=== PATIENT | male | born 1935 | race American Indian/Alaskan Native ===

== ENCOUNTER 2018-01-02 22:48 | Inpatient (IN) | payer MEDICARE ==
[2018-01-02 23:33] LABS: Hematocrit 43.1 % (35.5-45.6); Hemoglobin 14.2 gm/dl (11.8-15.2); Mean Corpuscular HGB Conc 33 % (32-34); Mean Corpuscular Hemoglobin 26 pg (28-32); Mean Corpuscular Volume 79 fl (84-94); Platelet Count 234 K/mm3 (140-440); Red Blood Count 5.45 M/mm3 (3.65-5.03); Red Cell Distribution Width 14.3 % (13.2-15.2)
--- NOTE | 2018-01-02 23:38 | Emergency Department Report ---
HPI - General Chief Complaint: Weakness Time Seen by Provider: 01/02/18 23:08 - HPI HPI: 82-year-old Sudanese male presents to the emergency department via EMS from home after he was found in bed by his family when they were unable to get in touch with him all day. The patient is AAO 3 but does appear to have some level of confusion as to why he did not get out of bed all day. He has not eaten anything today, he did not get up to use the restroom and possibly soiled himself. He lives by himself. He is unsure of any past medical history but there is some questionable remote coronary artery disease and/or WI. When he was found by his family earlier tonight he began complaining of significant left hip pain. He denies any fall or trauma "as far as I can remember." He gets his medical care through the [facility] and through [facility]. ED Past Medical Hx - Past Medical History Previous Medical History?: No - Surgical History Past Surgical History?: No - Social History Smoking Status: Never Smoker Substance Use Type: None - Medications Home Medications: Home Medications Medication Instructions Recorded Confirmed Last Taken Type Dorzolamide HCl/Timolol Maleat 22.3 mg OD BID 01/03/18 01/03/18 01/01/18 08:00 History Sulfamethoxazole-Tmp Ss Tablet 800 mg PO BID 01/03/18 01/03/18 01/01/18 08:00 History ED Review of Systems ROS: Stated complaint: HIP PAIN Other details as noted in HPI Comment: All other systems reviewed and negative Constitutional: chills, weakness Eyes: eye discharge. denies: eye pain ENT: denies: ear pain, throat pain Respiratory: denies: cough, shortness of breath, wheezing Cardiovascular: denies: chest pain, palpitations Gastrointestinal: denies: abdominal pain, nausea, diarrhea Genitourinary: denies: urgency, dysuria Musculoskeletal: arthralgia. denies: back pain Skin: denies: rash, lesions Neurological: weakness, confusion. denies: headache Physical Exam - Physical Exam Vital Signs: Vital Signs 01/02/18 23:01 Temperature 99.8 F H Pulse Rate 98 H Respiratory 16 Rate Blood Pressure 144/91 O2 Sat by Pulse 98 Oximetry Physical Exam: GENERAL: The patient is well-developed well-nourished. HENT: Normocephalic. Atraumatic. Patient has moist mucous membranes. EYES: Extraocular motions are intact. Pupils equal reactive to light bilaterally. No nystagmus. NECK: Supple. Trachea is midline. CHEST/LUNGS: Clear to auscultation. There is no respiratory distress noted. HEART/CARDIOVASCULAR: Regular. There is no tachycardia. There is no murmur. ABDOMEN: Abdomen is soft, nontender. Patient has normal bowel sounds. There is no abdominal distention. SKIN: Skin is warm and dry. NEURO: The patient is awake, alert. The patient is unable to recall the events of today or explain why he never left bed. The patient is cooperative. The patient has no motor or sensory deficits. The patient has normal speech. Patient is tremulous. MUSCULOSKELETAL: Tenderness to palpation to the left hip. There is decreased range of motion of the left lower extremity secondary to left hip pain. ED Course Vital Signs 01/02/18 23:01 Temperature 99.8 F H Pulse Rate 98 H Respiratory 16 Rate Blood Pressure 144/91 O2 Sat by Pulse 98 Oximetry - Consultations Consultation #1: As the patient has [facility] insurance, we contacted the [facility] transfer line and I spoke with Dr. Diallo who is given permission to keep the patient at [facility] for further evaluation and treatment. 01/03/18 01:55 ED Medical Decision Making - Lab Data Result diagrams: 01/02/18 23:18 01/02/18 23:18 - EKG Data -: EKG Interpreted by Me EKG shows normal: sinus rhythm, axis (left axis deviation), intervals, QRS complexes (incomplete right bundle branch block, left anterior fascicular block) , ST-T waves (T-wave inversions to the lateral leads) Rate: normal - EKG Data When compared to previous EKG there are: previous EKG unavailable Interpretation: other (sinus rhythm, left axis deviation, incomplete right bundle branch block, left anterior fascicular block, T-wave inversions to the inferior leads) - Radiology Data Radiology results: report reviewed, image reviewed interpreted by me: Chest x-ray does not show any acute process. There are no pleural effusions, obvious pneumonia and there is no pneumothorax. X-ray of the pelvis and bilateral hips does not show any fracture, dislocation or any acute process. EXAM: CT HEAD/BRAIN WO CON HISTORY: Altered Mental Status COMPARISON: CT of the head from May 2012. TECHNIQUE: Axial images obtained skull base through vertex. FINDINGS: No acute intracranial hemorrhage, midline shift or pathologic extra axial fluid collection. Age related volume loss with compensatory dilatation of the ventricular system and chronic small vessel ischemic disease. Otherwise, vu-white differentiation preserved. Calvarium grossly intact. Prior cataract surgery on the left. Benign senescent scleral calcification of the left ocular globe. Moderate calcified plaque along the carotid siphons. Small retention cyst or polyp left maxillary sinus. Mild to moderate mucosal thickening the paranasal sinuses. Mastoid air cells are clear. IMPRESSION: No grossly acute intracranial abnormality. Mild age related volume loss and chronic small vessel ischemic disease. Transcribed By: LMAngela Dictated By: LIZZIE KAUR MD Electronically Authenticated By: LIZZIE KAUR MD Signed Date/Time: 01/03/18 0012 - Medical Decision Making This patient presents from home via EMS after he was nonresponsive to families phone calls and the patient was found laying in bed where he appears to have been since last night, 24 hours ago. He does not recall eating, getting up to use the restroom. He presents with a low-grade fever. Rest of vitals are stable. His labs show a mild elevation in the lactic acid level, elevation of CK level at about 1000. He was given some IV fluid resuscitation but has yet to give a urine sample. Patient had a complaint of severe left hip pain. There is no known trauma but he is tender to this area without any obvious deformity. X-ray of the hips and pelvis was done that did not show any fracture , dislocation or any acute process. Due to his generalized weakness, a CT scan of the head without contrast was also done but this also did not show any bleed , shift, mass or any other acute process. The patient lives alone and family is at bedside and says that he does not appear to be at his normal baseline mental status and he appears weak and tremulous. For all these reasons, the patient will be admitted to the hospital for further evaluation and treatment and was accepted for admission by the hospitalist, Dr. Hawk. - Differential Diagnosis CVA, TIA, dehydration, hypoglycemia, dysrhythmia Critical Care Time: No Critical care attestation.: If time is entered above; I have spent that time in minutes in the direct care of this critically ill patient, excluding procedure time. ED Disposition Clinical Impression: Generalized weakness, Elevated CK, Left hip pain Altered mental status Qualifiers: Altered mental status type: transient alteration of awareness Qualified Code(s) : R40.4 - Transient alteration of awareness Disposition: DC-09 OP ADMIT IP TO THIS HOSP Is pt being admited?: Yes Condition: Fair Time of Disposition: 01:55
--- NOTE | 2018-01-02 23:42 | XRay Report ---
FINAL REPORT PROCEDURE: XR CHEST 1V AP TECHNIQUE: Chest radiograph anteroposterior view. CPT 11887 HISTORY: Altered Mental Status COMPARISON: No prior studies are available for comparison. FINDINGS: Heart: Normal. Mediastinum/Vessels: Normal. Lungs/Pleural space: Lungs are hyperinflated. There are no confluent infiltrates or mass lesions. Pleural spaces are clear.. Bony thorax: No acute osseous abnormality. Life support devices: None. IMPRESSION: COPD No acute pulmonary process..
--- NOTE | 2018-01-02 23:45 | XRay Report ---
FINAL REPORT PROCEDURE: XR HIPS BILAT 2V W/PELVIS TECHNIQUE: Pelvis radiographs, 2 views. HISTORY: pelvic and left hip pain COMPARISON: No prior studies are available for comparison. FINDINGS: Fracture (s) and/or Dislocation(s): None . Joint space(s): Normal. Soft tissues: Normal. Bone mineralization: Normal. Foreign bodies: None. Transitional vertebra is noted at lumbosacral junction. Spinal stabilization hardware is identified from L3-L5. IMPRESSION: No acute abnormality.
[2018-01-02] MEDS ORDERED: NACL 0.9% 1000 ML 1,000 ML IV ONE (23:59)
[2018-01-03 00:04] LABS: Alanine Aminotransferase 12 units/L (7-56); Albumin 3.8 g/dL (3.9-5); BUN/Creatinine Ratio 12; Blood Urea Nitrogen 15 mg/dL (9-20); Calcium 9.2 mg/dL (8.4-10.2); Hemolysis Index 3
[2018-01-03] MEDS ORDERED: NACL 0.9% 500 ML 500 ML IV ONE (00:09)
--- NOTE | 2018-01-03 00:16 | Cat Scan Report ---
FINAL REPORT EXAM: CT HEAD/BRAIN WO CON HISTORY: Altered Mental Status COMPARISON: CT of the head from May 2012. TECHNIQUE: Axial images obtained skull base through vertex. FINDINGS: No acute intracranial hemorrhage, midline shift or pathologic extra axial fluid collection. Age related volume loss with compensatory dilatation of the ventricular system and chronic small vessel ischemic disease. Otherwise, vu-white differentiation preserved. Calvarium grossly intact. Prior cataract surgery on the left. Benign senescent scleral calcification of the left ocular globe. Moderate calcified plaque along the carotid siphons. Small retention cyst or polyp left maxillary sinus. Mild to moderate mucosal thickening the paranasal sinuses. Mastoid air cells are clear. IMPRESSION: No grossly acute intracranial abnormality. Mild age related volume loss and chronic small vessel ischemic disease.
[2018-01-03] MEDS ORDERED: TYLENOL PO ONE (00:49)
[2018-01-03 02:36] LABS: Band Neutrophils # (Manual) 0.1 K/mm3; Basophils % (Manual) 0 % (0.0-1.8); Platelet Estimate Consistent w Auto; Total Cells Counted 100
[2018-01-03] MEDS ORDERED: TYLENOL PO PRN (02:55)
[2018-01-03] MEDS ORDERED: ZOFRAN IV PRN (02:55)
[2018-01-03] MEDS ORDERED: DULCOLAX PR PRN (02:55)
[2018-01-03] MEDS ORDERED: SODIUM CHLORIDE FLUSH SYRINGE 10 ML IV PRN (02:55)
[2018-01-03 04:03] LABS: Bilirubin,Urine NEG (Negative); Blood,Urine MOD (Negative); Color,Urine Yellow (Yellow); Mucus,Urine FEW /HPF; Urobilinogen,Urine < 2.0 mg/dL (<2.0)
[2018-01-03 04:17] LABS: Amphetamine Screen,Urine PRESUMPTIVE NEGATIVE; Benzodiazepines Screen,Urine PRESUMPTIVE NEGATIVE; Cannabinoid Screen,Urine PRESUMPTIVE NEGATIVE; Cocaine Screen,Urine PRESUMPTIVE NEGATIVE; Methadone Screen,Urine PRESUMPTIVE NEGATIVE; Opiate Screen,Urine PRESUMPTIVE NEGATIVE
--- NOTE | 2018-01-03 04:34 | Cat Scan Report ---
FINAL REPORT EXAM: CT LOWER EXTREMITY LT WO CON HISTORY: left hip pain TECHNIQUE: CT images are acquired through the left hip without contrast. Transaxial , coronal and sagittal reformations are provided. PRIORS: The hip/pelvis radiographs of the same date FINDINGS: Diffuse demineralization. Mild diffuse pelvic enthesopathy. Os acetabuli are noted. Mild left hip osteoarthrosis. No displaced fractures identified. A Rivera catheter is noted. Pelvic phleboliths. Iliofemoral atherosclerotic calcifications are noted. Superficial soft tissues otherwise demonstrate an unremarkable noncontrast appearance. IMPRESSION: No displaced left hip periarticular fracture. Sensitivity of fracture detection is decreased by demineralization and degenerative findings. If patient has persistent hip pain, consider MRI.
--- NOTE | 2018-01-03 04:38 | Cat Scan Report ---
FINAL REPORT EXAM: CT LUMBAR SPINE WO CON HISTORY: lower extremity weakness TECHNIQUE: CT images are acquired through the lumbar spine without contrast. Transaxial , coronal and sagittal reformations are provided. PRIORS: None. FINDINGS: Laminectomy and posterior fusion has been performed at L3-L4 and L4-L5. There is mild anterolisthesis at L4-L5. Lumbar lordosis is otherwise preserved. No acute fracture identified. Vertebral body heights are preserved. Mild intervertebral disc space narrowing with associated endplate spondylosis is present at the non operative levels. Left iliac sequela of prior bone graft harvest is noted. Paraspinal soft tissues and imaged portions of the abdomen and pelvis are remarkable for sequela of prior lumbar fusion as well as aortoiliac atherosclerosis. IMPRESSION: No lumbar spine fracture or acute malalignment identified. Correlation with prior postoperative imaging is requested. Mild anterolisthesis at L4-L5 is likely chronic. Fusion hardware at L3-L4 and L4-L5 appears intact.
--- NOTE | 2018-01-03 04:48 | History and Physical Report ---
History of Present Illness Date of examination: 01/03/18 Date of admission: 01/03/18 02:55 History of present illness: 82-year-old man with a history of BPH comes emergency room with complaints of altered mental status per family. They have been calling the patient without a response, after several attempts, the daughter went to check on him. She found him in bed with decrease responsiveness, the house was very hot. Mental status back at baseline. He was started on antibiotic yesterday for UTI, they are unclear which antibiotic he was taking. complain of left hip pain Constitutional: no weight loss, chills Ears, eyes, nose, mouth and throat: no nasal congestion, no nasal discharge, no sinus pressure, no vision change, no red eye. Neck: No neck pain or rigidity. Cardiovascular: no chest pain palpitations Respiratory: noshortness of breath cough Gastrointestinal: no abdominal pain, hematochezia Genitourinary : no frequency , no hematuria Musculoskeletal: no joint swelling or muscle ache Integumentary: no rash, no pruritis Neurological: no parathesias, no numbness, no focal weakness Endocrine: no cold or heat intolerance, no polyuria or polydipsia Hematologic/Lymphatic: no easy bruising, no easy bleeding, no gland swelling Allergic/Immunologic: no urticaria, no angioedema. PAST MEDICAL HISTORY: BPH PAST SURGICAL HISTORY: Back, knee SOCIAL HISTORY: Denies tobacco, drugs, social alcohol FAMILY HISTORY: Hypertension Medications and Allergies Allergies Allergy/AdvReac Type Severity Reaction Status Date / Time Penicillins Allergy Hives Verified 01/02/18 23:00 Active Meds: Active Medications Acetaminophen (Tylenol) 650 mg PO Q4H PRN PRN Reason: Pain, Mild (1-3) Aspirin (Aspirin) 325 mg PO QDAY MICHELLE Bisacodyl (Dulcolax) 10 mg RI QDAY PRN PRN Reason: Constipation Enoxaparin Sodium (Lovenox) 40 mg SUB-Q QDAY MICHELLE Sodium Chloride (Nacl 0.9% 1000 Ml) 1,000 mls @ 125 mls/hr IV ONCE ONE Stop: 01/03/18 07:58 Last Admin: 01/03/18 01:46 Dose: 125 mls/hr Levofloxacin/Dextrose (Levaquin 750mg/150ml) 750 mg in 150 mls @ 100 mls/hr IV Q24HR MICHELLE; Protocol Sodium Chloride (Nacl 0.9% 1000 Ml) 1,000 mls @ 125 mls/hr IV DIRECT MICHELLE Ondansetron HCl (Zofran) 4 mg IV Q4H PRN PRN Reason: N/V unrelieved by Regrosalba Pravastatin Sodium (Pravachol) 20 mg PO QHS MICHELLE Sodium Chloride (Sodium Chloride Flush Syringe 10 Ml) 10 ml IV PRN PRN PRN Reason: LINE FLUSH Exam - Physical Exam Narrative exam: Gen. appearance: Patient lying in bed, no apparent distress HEENT: Normocephalic, atraumatic, pupils equally round and reactive to light, extraocular movement intact, and no sclericterus,. No JVD or thyromegaly or nodule,neck supple, no carotid bruit ,mucous membranes dry, no exudate or erythema Heart: S1, S2, regular rate and rhythm Lungs: Clear bilaterally, breathing comfortable Abdomen: Positive bowel sounds, nontender, nondistended, no organomegaly Extremity:, no edema cyanosis, clubbing sKIN:red blotches over torso, abdomen, Llegs, face, Neuro: Oriented 3, cranial nerves II-12 intact, speech is fluent, lLLE 1/5, RLE 2/5 - Constitutional Vitals: Temp Pulse Resp BP Pulse Ox 99.2 F 81 13 134/84 94 01/02/18 23:09 01/03/18 03:31 01/03/18 03:31 01/03/18 03:31 01/03/18 03:15 Results - Labs CBC & Chem 7: 01/02/18 23:18 01/02/18 23:18 Labs: Abnormal lab results 01/02/18 01/02/18 01/02/18 Range/Units 23:18 23:18 23:18 WBC 11.2 H (4.5-11.0) K/mm3 RBC 5.45 H (3.65-5.03) M/mm3 MCV 79 L (84-94) fl MCH 26 L (28-32) pg Seg Neuts % (Manual) 90.0 H (40.0-70.0) % Lymphocytes % (Manual) 4.0 L (13.4-35.0) % Seg Neutrophils # Man 10.1 H (1.8-7.7) K/mm3 Lymphocytes # (Manual) 0.4 L (1.2-5.4) K/mm3 Glucose 133 H (75-100) mg/dL Lactic Acid 2.10 H* (0.7-2.0) mmol/L Total Creatine Kinase 951 H (55-170) units/L Albumin 3.8 L (3.9-5) g/dL - Imaging and Cardiology EKG: image reviewed Chest x-ray: image reviewed CT Scan - head: report reviewed Assessment and Plan xray of hip reviewed Assessmrnt Lower Extremity weakness Allergic reaction most likely secondary to antibiotic Left hip pain UTI Rhabdomyolysis BPH Plan admit to medicine Obatin CT of back, hip Do neuro check start workup for stroke, MR head, carotid doppler and echo Start asa,iv fluid, hold statinn given rhabdo consult neuro. PT/OT hold antibiotic for now,l family to provide name of antibiotic dvt prophalaxis
[2018-01-03] MEDS: LEVAQUIN 750MG/150ML 750 MG/150 ML BAG IV SCH (10:24)
[2018-01-03] MEDS: ASPIRIN PO SCH (10:49)
[2018-01-03] MEDS: LOVENOX SUB-Q SCH (10:50)
[2018-01-03 11:26] LABS: Creatine Kinase MB 9.5 ng/mL (0.0-4.0)
--- NOTE | 2018-01-03 11:39 | Magnetic Resonance Report ---
FINAL REPORT EXAM: MR BRAIN WO CON HISTORY: stroke TECHNIQUE: MRI of the brain was performed. Images include: Sagittal T1, axial diffusion, axial gradient, axial T2, axial FLAIR, axial T1, coronal FLAIR and axial ADC map PRIORS: None. FINDINGS: There is a single tiny cortical focus of diffusion restriction in the right occipital lobe. Significance is unclear. This is very tiny and superficial. It could be a tiny cortical acute infarct. It measures only about 3 mm. No other area of diffusion restriction seen. There is nonspecific hyperintensity in periventricular white matter which is nonspecific but likely represents chronic microvascular ischemic disease. There is no edema, mass effect or midline shift. There is no abnormal extra-axial fluid collection. The ventricular size is appropriate for brain volume. There is no evidence of acute intracranial hemorrhage. IMPRESSION: There is a single 3 mm focus of diffusion restriction involving right occipital cortex which is of unclear significance. This is very minimal but could be very tiny acute cortical infarct. Moderate small vessel disease in the white matter.
--- NOTE | 2018-01-03 11:51 | Consultation ---
History of Present Illness Consult date: 01/03/18 Requesting physician: ROBERT BHATT Reason for Consult: AMS. Chief complaint: Confuse. History of present illness: 82-year-old right handed man with a history of BPH and arthritis presented to the emergency room with complaints of altered mental status per family. They have been calling the patient without a response, after several attempts, the daughter went to check on him. She found him in bed with decrease responsiveness, the house was very hot. When he was in the ER, mental status back at baseline. He was started on antibiotic yesterday for UTI, they are unclear which antibiotic he was taking. He also complain of left hip pain. His baseline is that cognitive functions are fine and ambulated with a walker for 2 years due to arthritis. There was no [id number] seizure like noted. Past History Past Medical History: other (BPH, arthritis.) Past Surgical History: Other (right knee replacement.) Social history: no significant social history Family history: hypertension Medications and Allergies Allergies Allergy/AdvReac Type Severity Reaction Status Date / Time Penicillins Allergy Hives Verified 01/02/18 23:00 Home Medications Medication Instructions Recorded Confirmed Last Taken Type Dorzolamide HCl/Timolol Maleat 22.3 mg OD BID 01/03/18 01/03/18 01/01/18 08:00 History Sulfamethoxazole-Tmp Ss Tablet 800 mg PO BID 01/03/18 01/03/18 01/01/18 08:00 History Active Meds: Active Medications Acetaminophen (Tylenol) 650 mg PO Q4H PRN PRN Reason: Pain, Mild (1-3) Aspirin (Aspirin) 325 mg PO QDAY [facility] Last Admin: 01/03/18 10:49 Dose: 325 mg Bisacodyl (Dulcolax) 10 mg ND QDAY PRN PRN Reason: Constipation Enoxaparin Sodium (Lovenox) 40 mg SUB-Q QDAY [facility] Last Admin: 01/03/18 10:50 Dose: 40 mg Levofloxacin/Dextrose (Levaquin 750mg/150ml) 750 mg in 150 mls @ 100 mls/hr IV Q24HR MICHELLE; Protocol Sodium Chloride (Nacl 0.9% 1000 Ml) 1,000 mls @ 125 mls/hr IV DIRECT MICHELLE Ondansetron HCl (Zofran) 4 mg IV Q4H PRN PRN Reason: N/V unrelieved by Reglan Sodium Chloride (Sodium Chloride Flush Syringe 10 Ml) 10 ml IV PRN PRN PRN Reason: LINE FLUSH Review of Systems All systems: negative (both hip pains, not fully oriented. All other 10 pointas of systems are reviewed and negative.) Physical Examination - Vital Signs Vital Signs: Vital Signs Temp Pulse Resp BP Pulse Ox 99.8 F H 98 H 16 144/91 98 01/02/18 23:01 01/02/18 23:01 01/02/18 23:01 01/02/18 23:01 01/02/18 23:01 - Constitutional General appearance: comfortable - EENT EENT: Present: PERRL, other (left eye vision blurry, probably cataract.) - Respiratory Respiratory: Present: lungs clear, normal breath sounds - Cardiovascular Cardiovascular: Present: regular rate, no murmurs Extremities: Present: no peripheral edema bilatateraly, no clubbing, cyanosis - Gastrointestinal Gastrointestinal: Present: soft, non-tender - Integumentary Integumentary: Present: normal - Neurologic Cranial nerve examination: PERRL, EOMI, V1/V2/V3 grossly intact, other (left eye decreased vision. All other CN II-XII intact.) Detailed motor examination: grossly full strength in Reflexes: 1+: ankle, bicep, knee, tricep Cerebellar examination: other (gait deferred.) - Psychiatric Psychiatric: Present: mood/affect appropriate Results - Laboratory Findings CBC and BMP: 01/02/18 23:18 01/02/18 23:18 Abnormal Lab Findings: Abnormal Labs 01/02/18 01/02/18 01/02/18 23:18 23:18 23:18 WBC 11.2 H RBC 5.45 H MCV 79 L MCH 26 L Seg Neuts % (Manual) 90.0 H Lymphocytes % (Manual) 4.0 L Seg Neutrophils # Man 10.1 H Lymphocytes # (Manual) 0.4 L Glucose 133 H Lactic Acid 2.10 H* Total Creatine Kinase 951 H CK-MB (CK-2) Albumin 3.8 L 01/03/18 10:15 WBC RBC MCV MCH Seg Neuts % (Manual) Lymphocytes % (Manual) Seg Neutrophils # Man Lymphocytes # (Manual) Glucose Lactic Acid Total Creatine Kinase 1685 H CK-MB (CK-2) 9.5 H Albumin Assessment and Plan 1. Encephalopathy. Multiple factors or due to UTI. Supportive. Brain MRI, EEG, TSH, B12, RPR and ammonia. 2. UTI. Antibiotics. 3. BPH. Urology. 4. Arthritis and both hop pains. X-ray. If needed, orthopaedic consult. 5. HTN. Medicine. 6. Treat risk factors of CVA. Aspirin. 7. Plan discussed with him. 8. Will follow up with you. 9. If D/C, F/U with neurology in 4-6 weeks.
[2018-01-03 14:03] LABS: Creatine Kinase MB 9.8 ng/mL (0.0-4.0)
[2018-01-03] MEDS: NACL 0.9% 1000 ML 1,000 ML IV SCH (16:27)
--- NOTE | 2018-01-03 17:38 | Progress Note ---
Assessment and Plan Assessment and plan: --Metabolic encephalopathy; Slightly improved, multifactorial, supportive care Patient is more alert and responding to simple questions --Possible CVA; not a candidate for TPA neurology evaluation noted and appreciated Physical therapy occupational therapy rehabilitation Neurology evaluation noted and appreciated Workup: CT head without contrast; no acute abnormality Echo; EF 55% MRI brain; single 3 mL focus of diffusion restriction involving right occipital cortex moderate small vessel disease Carotid Doppler; is then 50% stenosis EEG; pending --Lower extremity weakness; CT lumbar spine; no fracture or acute findings noted Mild and the role listhesis at L4 5 ,L3 4 L4 5 fusion hardware intact Continue supportive care, PT/OT --Left hip pain; CT left hip nondisplaced left hip fracture, diffuse demyelination Continue supportive care X-ray hip and pelvis; no acute abnormalities --Sepsis secondary to urinary tract infection/lactic acidosis Empiric antibiotics, follow cultures and supportive care --History of BPH; continue current home medications --Rhabdomyolysis; secondary to fall Preserved renal function ,Gentle hydration, monitor CK levels --DVT prophylaxis; Lovenox --PTOT, rehabilitation --Discharge planning ;Possible rehabilitation placement versus home with home health Plan of care discussed with the patient and the family member at the bedside and his nurse History Interval history: Patient seen and examined medical records reviewed Patient is more alert and awake Responding to simple questions Syncope/CVA workup is in progress Vital signs reviewed Hospitalist Physical - Constitutional Vitals: Temp Pulse Resp BP Pulse Ox 98.7 F 70 16 156/84 97 01/03/18 15:35 01/03/18 15:35 01/03/18 15:35 01/03/18 15:35 01/03/18 15:35 General appearance: Present: no acute distress, well-nourished - EENT Eyes: Present: PERRL, EOM intact - Neck Neck: Present: supple, normal ROM - Respiratory Respiratory effort: normal Respiratory: negative: rales, rhonchi, wheezing - Cardiovascular Rhythm: regular Heart Sounds: Present: S1 & S2 - Extremities Extremities: no ischemia, No edema Peripheral Pulses: within normal limits - Abdominal General gastrointestinal: soft, non-tender, non-distended, normal bowel sounds - Integumentary Integumentary: Present: clear, warm - Psychiatric Psychiatric: appropriate mood/affect, cooperative - Neurologic Neurologic: CNII-XII intact, moves all extremities Results - Labs CBC & Chem 7: 01/02/18 23:18 01/02/18 23:18 Labs: Laboratory Last Values WBC 11.2 K/mm3 (4.5-11.0) H 01/02/18 23:18 RBC 5.45 M/mm3 (3.65-5.03) H 01/02/18 23:18 Hgb 14.2 gm/dl (11.8-15.2) 01/02/18 23:18 Hct 43.1 % (35.5-45.6) 01/02/18 23:18 MCV 79 fl (84-94) L 01/02/18 23:18 MCH 26 pg (28-32) L 01/02/18 23:18 MCHC 33 % (32-34) 01/02/18 23:18 RDW 14.3 % (13.2-15.2) 01/02/18 23:18 Plt Count 234 K/mm3 (140-440) 01/02/18 23:18 Add Manual Diff Complete 01/02/18 23:18 Total Counted 100 01/02/18 23:18 Seg Neutrophils % Integrity Engineer 01/02/18 23:18 Seg Neuts % (Manual) 90.0 % (40.0-70.0) H 01/02/18 23:18 Band Neutrophils % 1.0 % 01/02/18 23:18 Lymphocytes % (Manual) 4.0 % (13.4-35.0) L 01/02/18 23:18 Reactive Lymphs % (Man) 0 % 01/02/18 23:18 Monocytes % (Manual) 3.0 % (0.0-7.3) 01/02/18 23:18 Eosinophils % (Manual) 2.0 % (0.0-4.3) 01/02/18 23:18 Basophils % (Manual) 0 % (0.0-1.8) 01/02/18 23:18 Metamyelocytes % 0 % 01/02/18 23:18 Myelocytes % 0 % 01/02/18 23:18 Promyelocytes % 0 % 01/02/18 23:18 Blast Cells % 0 % 01/02/18 23:18 Nucleated RBC % Not Reportable 01/02/18 23:18 Seg Neutrophils # Man 10.1 K/mm3 (1.8-7.7) H 01/02/18 23:18 Band Neutrophils # 0.1 K/mm3 01/02/18 23:18 Lymphocytes # (Manual) 0.4 K/mm3 (1.2-5.4) L 01/02/18 23:18 Abs React Lymphs (Man) 0.0 K/mm3 01/02/18 23:18 Monocytes # (Manual) 0.3 K/mm3 (0.0-0.8) 01/02/18 23:18 Eosinophils # (Manual) 0.2 K/mm3 (0.0-0.4) 01/02/18 23:18 Basophils # (Manual) 0.0 K/mm3 (0.0-0.1) 01/02/18 23:18 Metamyelocytes # 0.0 K/mm3 01/02/18 23:18 Myelocytes # 0.0 K/mm3 01/02/18 23:18 Promyelocytes # 0.0 K/mm3 01/02/18 23:18 Blast Cells # 0.0 K/mm3 01/02/18 23:18 WBC Morphology Not Reportable 01/02/18 23:18 Hypersegmented Neuts Not Reportable 01/02/18 23:18 Hyposegmented Neuts Not Reportable 01/02/18 23:18 Hypogranular Neuts Not Reportable 01/02/18 23:18 Smudge Cells Not Reportable 01/02/18 23:18 Toxic Granulation Not Reportable 01/02/18 23:18 Toxic Vacuolation Not Reportable 01/02/18 23:18 Dohle Bodies Not Reportable 01/02/18 23:18 Pelger-Huet Anomaly Not Reportable 01/02/18 23:18 Nicole Rods Not Reportable 01/02/18 23:18 Platelet Estimate Consistent w auto 01/02/18 23:18 Clumped Platelets Not Reportable 01/02/18 23:18 Plt Clumps, EDTA Not Reportable 01/02/18 23:18 Large Platelets Not Reportable 01/02/18 23:18 Giant Platelets Not Reportable 01/02/18 23:18 Platelet Satelliting Not Reportable 01/02/18 23:18 Plt Morphology Comment Not Reportable 01/02/18 23:18 RBC Morphology Not Reportable 01/02/18 23:18 Dimorphic RBCs Not Reportable 01/02/18 23:18 Polychromasia Not Reportable 01/02/18 23:18 Hypochromasia Not Reportable 01/02/18 23:18 Poikilocytosis Not Reportable 01/02/18 23:18 Anisocytosis Not Reportable 01/02/18 23:18 Microcytosis Not Reportable 01/02/18 23:18 Macrocytosis Not Reportable 01/02/18 23:18 Spherocytes Not Reportable 01/02/18 23:18 Pappenheimer Bodies Not Reportable 01/02/18 23:18 Sickle Cells Not Reportable 01/02/18 23:18 Target Cells Not Reportable 01/02/18 23:18 Tear Drop Cells Not Reportable 01/02/18 23:18 Ovalocytes Not Reportable 01/02/18 23:18 Helmet Cells Not Reportable 01/02/18 23:18 [place] Bodies Not Reportable 01/02/18 23:18 [place] Rings Not Reportable 01/02/18 23:18 [place] Cells Not Reportable 01/02/18 23:18 Bite Cells Not Reportable 01/02/18 23:18 Crenated Cell Not Reportable 01/02/18 23:18 Elliptocytes Not Reportable 01/02/18 23:18 Acanthocytes (Spur) Not Reportable 01/02/18 23:18 Rouleaux Not Reportable 01/02/18 23:18 Hemoglobin C Crystals Not Reportable 01/02/18 23:18 Schistocytes Not Reportable 01/02/18 23:18 Malaria parasites Not Reportable 01/02/18 23:18 Bert Bodies Not Reportable 01/02/18 23:18 Hem Pathologist Commnt No 01/02/18 23:18 Sodium 144 mmol/L (137-145) 01/02/18 23:18 Potassium 4.1 mmol/L (3.6-5.0) 01/02/18 23:18 Chloride 105.2 mmol/L (98-107) 01/02/18 23:18 Carbon Dioxide 25 mmol/L (22-30) 01/02/18 23:18 Anion Gap 18 mmol/L 01/02/18 23:18 BUN 15 mg/dL (9-20) 01/02/18 23:18 Creatinine 1.3 mg/dL (0.8-1.5) 01/02/18 23:18 Estimated GFR > 60 ml/min 01/02/18 23:18 BUN/Creatinine Ratio 12 % 01/02/18 23:18 Glucose 133 mg/dL (75-100) H 01/02/18 23:18 Lactic Acid 2.30 mmol/L (0.7-2.0) H* 01/03/18 12:56 Calcium 9.2 mg/dL (8.4-10.2) 01/02/18 23:18 Total Bilirubin 0.50 mg/dL (0.1-1.2) 01/02/18 23:18 AST 36 units/L (5-40) 01/02/18 23:18 ALT 12 units/L (7-56) 01/02/18 23:18 Alkaline Phosphatase 57 units/L (35-129) 01/02/18 23:18 Ammonia 39.0 umol/L (25-60) 01/03/18 12:56 Total Creatine Kinase 9.80 units/L (55-170) L 01/03/18 12:56 CK-MB (CK-2) 9.8 ng/mL (0.0-4.0) H 01/03/18 12:56 CK-MB (CK-2) Rel Index 100.0 (0-4) H 01/03/18 12:56 Troponin T 0.011 ng/mL (0.00-0.029) 01/03/18 12:56 Total Protein 7.5 g/dL (6.3-8.2) 01/02/18 23:18 Albumin 3.8 g/dL (3.9-5) L 01/02/18 23:18 Albumin/Globulin Ratio 1.0 % 01/02/18 23:18 Vitamin B12 508.3 pg/mL (211-911) 01/03/18 12:56 TSH 0.284 mlU/mL (0.270-4.200) 01/03/18 12:56 Urine Color Yellow (Yellow) 01/03/18 03:45 Urine Turbidity Clear (Clear) 01/03/18 03:45 Urine pH 5.0 (5.0-7.0) 01/03/18 03:45 Ur Specific [place] 1.016 (1.003-1.030) 01/03/18 03:45 Urine Protein 30 mg/dl mg/dL (Negative) 01/03/18 03:45 Urine Glucose (UA) Neg mg/dL (Negative) 01/03/18 03:45 Urine Ketones Tr mg/dL (Negative) 01/03/18 03:45 Urine Blood Mod (Negative) 01/03/18 03:45 Urine Nitrite Neg (Negative) 01/03/18 03:45 Urine Bilirubin Neg (Negative) 01/03/18 03:45 Urine Urobilinogen < 2.0 mg/dL (<2.0) 01/03/18 03:45 Ur Leukocyte Esterase Neg (Negative) 01/03/18 03:45 Urine WBC (Auto) 1.0 /HPF (0.0-6.0) 01/03/18 03:45 Urine RBC (Auto) 1.0 /HPF (0.0-6.0) 01/03/18 03:45 Urine Mucus Few /HPF 01/03/18 03:45 Urine Opiates Screen Presumptive negative 01/03/18 03:45 Urine Methadone Screen Presumptive negative 01/03/18 03:45 Ur Barbiturates Screen Presumptive negative 01/03/18 03:45 Ur Phencyclidine Scrn Presumptive negative 01/03/18 03:45 Ur Amphetamines Screen Presumptive negative 01/03/18 03:45 U Benzodiazepines Scrn Presumptive negative 01/03/18 03:45 Urine Cocaine Screen Presumptive negative 01/03/18 03:45 U Marijuana (THC) Screen Presumptive negative 01/03/18 03:45 Drugs of Abuse Note Disclamer 01/03/18 03:45 Plasma/Serum Alcohol < 0.01 % (0-0.07) 01/02/18 23:18
[2018-01-03] MEDS ORDERED: PRAVACHOL PO SCH (22:00)
[2018-01-04] MEDS: NACL 0.9% 1000 ML 1,000 ML IV SCH ×3 (00:09→18:06)
[2018-01-04 07:51] LABS: Basophils % (Auto) 0.1 % (0.0-1.8); Eosinophils # (Auto) 0.3 K/mm3 (0.0-0.4); Hematocrit 36.1 % (35.5-45.6); Hemoglobin 11.8 gm/dl (11.8-15.2); Lymphocytes # (Auto) 0.9 K/mm3 (1.2-5.4); Lymphocytes % (Auto) 12.1 % (13.4-35.0); Mean Corpuscular HGB Conc 33 % (32-34); Mean Corpuscular Hemoglobin 26 pg (28-32); Mean Corpuscular Volume 79 fl (84-94); Monocytes # (Auto) 0.7 K/mm3 (0.0-0.8); Monocytes % (Auto) 8.7 % (0.0-7.3); Platelet Count 179 K/mm3 (140-440); Red Blood Count 4.58 M/mm3 (3.65-5.03); Red Cell Distribution Width 14.4 % (13.2-15.2)
[2018-01-04 08:01] LABS: Alanine Aminotransferase 19 units/L (7-56); BUN/Creatinine Ratio 13; Blood Urea Nitrogen 12 mg/dL (9-20); Calcium 8.7 mg/dL (8.4-10.2); HDL Cholesterol 30 mg/dL (40-59); Hemolysis Index 28; LDL Cholesterol,Direct 82 mg/dL (50-130)
[2018-01-04 08:11] LABS: Bilirubin,Direct < 0.2 mg/dL (0-0.2)
[2018-01-04] MEDS: LEVAQUIN 750MG/150ML 750 MG/150 ML BAG IV SCH ×2 (10:17→10:21)
[2018-01-04] MEDS: LOVENOX SUB-Q SCH (10:18)
[2018-01-04] MEDS: ASPIRIN PO SCH (10:19)
--- NOTE | 2018-01-04 12:42 | Progress Note ---
Assessment and Plan 1. Encephalopathy. Multiple factors or due to UTI. Supportive. Pending EEG, TSH , B12, RPR and ammonia. 2. Acute CVA. Brain MRI without contrast, right occipital 3 mm, ischemic infarct , acute. NIHSS 0. Not IV TPA or furnace repair mechanic thrombectomy candidate. Out of windows. OT/PT, rehab and speech pathology. 3. UTI. Antibiotics. 4. BPH. Urology. 5. Arthritis and both hop pains. X-ray. If needed, orthopaedic consult. 6. HTN. Medicine. 7. Treat risk factors of CVA. Aspirin. He stated that he didn't take aspirin at home. 8. Plan discussed with him. 9. Will follow up with you. 10. If D/C, F/U with neurology in 4-6 weeks. Subjective Date of service: 01/04/18 Principal diagnosis: Acute CVA. Interval history: Improved. Objective - Vital Sign Vital Signs - 12hr 01/04/18 01/04/18 01/04/18 00:43 05:10 05:32 Temperature Pulse Rate 69 70 67 Pulse Rate [ Apical] Respiratory 18 18 Rate Blood Pressure 150/84 160/83 O2 Sat by Pulse 97 93 Oximetry 01/04/18 01/04/18 08:17 10:00 Temperature 98.2 F Pulse Rate 69 Pulse Rate [ 67 Apical] Respiratory 18 18 Rate Blood Pressure 160/78 O2 Sat by Pulse 98 98 Oximetry - General Apperance Constitutional: comfortable - EENT EENT: PERRL, mucous membranes moist - Respiratory Respiratory: lungs clear, normal breath sounds - Cardiovascular Cardiovascular: regular rate, no murmurs Extremities: no peripheral edema bilat, no clubbing, cyanosis - Gastrointestinal Gastrointestinal: soft, non-tender - Integumentary Integumentary: normal - Neurologic Cranial nerve examination: PERRL, EOMI, V1/V2/V3 grossly intact, intact Speech examination: intact Detailed motor examination: grossly full strength in Detailed sensory examination: intact Reflexes: 1+: ankle, bicep, knee, tricep - Laboratory Findings CBC and BMP: 01/04/18 07:26 01/04/18 07:26 Abnormal Lab Findings: Abnormal Labs 01/02/18 01/02/18 01/02/18 23:18 23:18 23:18 WBC 11.2 H RBC 5.45 H MCV 79 L MCH 26 L Lymph % (Auto) [place] % (Auto) Lymph # Seg Neutrophils % Seg Neuts % (Manual) 90.0 H Lymphocytes % (Manual) 4.0 L Seg Neutrophils # Man 10.1 H Lymphocytes # (Manual) 0.4 L Glucose 133 H Lactic Acid 2.10 H* AST Total Creatine Kinase 951 H CK-MB (CK-2) CK-MB (CK-2) Rel Index Albumin 3.8 L HDL Cholesterol 01/03/18 01/03/18 01/03/18 10:15 12:56 12:56 WBC RBC MCV MCH Lymph % (Auto) [place] % (Auto) Lymph # Seg Neutrophils % Seg Neuts % (Manual) Lymphocytes % (Manual) Seg Neutrophils # Man Lymphocytes # (Manual) Glucose Lactic Acid 2.30 H* AST Total Creatine Kinase 1685 H 9.80 L CK-MB (CK-2) 9.5 H 9.8 H CK-MB (CK-2) Rel Index 100.0 H Albumin HDL Cholesterol 01/03/18 01/04/18 01/04/18 16:48 07:26 07:26 WBC RBC MCV 79 L MCH 26 L Lymph % (Auto) 12.1 L [place] % (Auto) 8.7 H Lymph # 0.9 L Seg Neutrophils % 75.1 H Seg Neuts % (Manual) Lymphocytes % (Manual) Seg Neutrophils # Man Lymphocytes # (Manual) Glucose Lactic Acid 2.50 H* AST 53 H Total Creatine Kinase 929 H CK-MB (CK-2) CK-MB (CK-2) Rel Index Albumin 3.0 L HDL Cholesterol 30 L
[2018-01-04] MEDS ORDERED: MILK OF MAGNESIA PO PRN (15:00)
--- NOTE | 2018-01-04 19:49 | Progress Note ---
Assessment and Plan Assessment and plan: --Metabolic encephalopathy; supportive care, resolved --Acute CVA; not a candidate for TPA neurology evaluation noted and appreciated/PT/OT Workup: CT head without contrast; no acute abnormality Echo; EF 55% MRI brain; single 3 mL focus of diffusion restriction involving right occipital cortex moderate small vessel disease Carotid Doppler; is then 50% stenosis EEG; pending --Lower extremity weakness; CT lumbar spine; no fracture or acute findings noted Mild and the role listhesis at L4 5 ,L3 4 L4 5 fusion hardware intact Continue supportive care, PT/OT --Left hip pain; CT left hip nondisplaced left hip fracture, diffuse demyelination Continue supportive care X-ray hip and pelvis; no acute abnormalities --Sepsis secondary to urinary tract infection/lactic acidosis Patient has no symptoms, WBC normal afebrile, DC antibiotics --History of BPH; continue current home medications --Rhabdomyolysis; secondary to fall, CK level 929 Preserved renal function ,Gentle hydration, monitor CK levels --DVT prophylaxis; Lovenox --PTOT, rehabilitation --Discharge planning ;Possible rehabilitation placement versus home with home health Plan of care discussed with the patient and the family member at the bedside and his nurse History Interval history: Patient seen and examined medical records reviewed Patient feels slightly better no new complaints Vital signs reviewed Alert and awake not in acute distress Hospitalist Physical - Constitutional Vitals: Temp Pulse Resp BP Pulse Ox 98.2 F 67 18 160/78 98 01/04/18 08:17 01/04/18 10:00 01/04/18 10:00 01/04/18 08:17 01/04/18 10:00 General appearance: Present: no acute distress, well-nourished - EENT Eyes: Present: PERRL, EOM intact - Neck Neck: Present: supple, normal ROM - Respiratory Respiratory effort: normal Respiratory: bilateral: diminished, negative: rales, rhonchi, wheezing - Cardiovascular Rhythm: regular Heart Sounds: Present: S1 & S2 - Extremities Extremities: no ischemia, No edema - Abdominal General gastrointestinal: soft, non-tender, non-distended, normal bowel sounds - Integumentary Integumentary: Present: clear, warm - Psychiatric Psychiatric: appropriate mood/affect, cooperative - Neurologic Neurologic: other (residual weakness) Results - Labs CBC & Chem 7: 01/04/18 07:26 01/04/18 07:26 Labs: Laboratory Last Values WBC 7.5 K/mm3 (4.5-11.0) 01/04/18 07:26 RBC 4.58 M/mm3 (3.65-5.03) 01/04/18 07:26 Hgb 11.8 gm/dl (11.8-15.2) 01/04/18 07:26 Hct 36.1 % (35.5-45.6) D 01/04/18 07:26 MCV 79 fl (84-94) L 01/04/18 07:26 MCH 26 pg (28-32) L 01/04/18 07:26 MCHC 33 % (32-34) 01/04/18 07:26 RDW 14.4 % (13.2-15.2) 01/04/18 07:26 Plt Count 179 K/mm3 (140-440) 01/04/18 07:26 Lymph % (Auto) 12.1 % (13.4-35.0) L 01/04/18 07:26 [place] % (Auto) 8.7 % (0.0-7.3) H 01/04/18 07:26 Eos % (Auto) 4.0 % (0.0-4.3) 01/04/18 07:26 Baso % (Auto) 0.1 % (0.0-1.8) 01/04/18 07:26 Lymph # 0.9 K/mm3 (1.2-5.4) L 01/04/18 07:26 [place] # 0.7 K/mm3 (0.0-0.8) 01/04/18 07:26 Eos # 0.3 K/mm3 (0.0-0.4) 01/04/18 07:26 Baso # 0.0 K/mm3 (0.0-0.1) 01/04/18 07:26 Add Manual Diff Complete 01/02/18 23:18 Total Counted 100 01/02/18 23:18 Seg Neutrophils % 75.1 % (40.0-70.0) H 01/04/18 07:26 Seg Neuts % (Manual) 90.0 % (40.0-70.0) H 01/02/18 23:18 Band Neutrophils % 1.0 % 01/02/18 23:18 Lymphocytes % (Manual) 4.0 % (13.4-35.0) L 01/02/18 23:18 Reactive Lymphs % (Man) 0 % 01/02/18 23:18 Monocytes % (Manual) 3.0 % (0.0-7.3) 01/02/18 23:18 Eosinophils % (Manual) 2.0 % (0.0-4.3) 01/02/18 23:18 Basophils % (Manual) 0 % (0.0-1.8) 01/02/18 23:18 Metamyelocytes % 0 % 01/02/18 23:18 Myelocytes % 0 % 01/02/18 23:18 Promyelocytes % 0 % 01/02/18 23:18 Blast Cells % 0 % 01/02/18 23:18 Nucleated RBC % Not Reportable 01/02/18 23:18 Seg Neutrophils # 5.6 K/mm3 (1.8-7.7) 01/04/18 07:26 Seg Neutrophils # Man 10.1 K/mm3 (1.8-7.7) H 01/02/18 23:18 Band Neutrophils # 0.1 K/mm3 01/02/18 23:18 Lymphocytes # (Manual) 0.4 K/mm3 (1.2-5.4) L 01/02/18 23:18 Abs React Lymphs (Man) 0.0 K/mm3 01/02/18 23:18 Monocytes # (Manual) 0.3 K/mm3 (0.0-0.8) 01/02/18 23:18 Eosinophils # (Manual) 0.2 K/mm3 (0.0-0.4) 01/02/18 23:18 Basophils # (Manual) 0.0 K/mm3 (0.0-0.1) 01/02/18 23:18 Metamyelocytes # 0.0 K/mm3 01/02/18 23:18 Myelocytes # 0.0 K/mm3 01/02/18 23:18 Promyelocytes # 0.0 K/mm3 01/02/18 23:18 Blast Cells # 0.0 K/mm3 01/02/18 23:18 WBC Morphology Not Reportable 01/02/18 23:18 Hypersegmented Neuts Not Reportable 01/02/18 23:18 Hyposegmented Neuts Not Reportable 01/02/18 23:18 Hypogranular Neuts Not Reportable 01/02/18 23:18 Smudge Cells Not Reportable 01/02/18 23:18 Toxic Granulation Not Reportable 01/02/18 23:18 Toxic Vacuolation Not Reportable 01/02/18 23:18 Dohle Bodies Not Reportable 01/02/18 23:18 Pelger-Huet Anomaly Not Reportable 01/02/18 23:18 Nicole Rods Not Reportable 01/02/18 23:18 Platelet Estimate Consistent w auto 01/02/18 23:18 Clumped Platelets Not Reportable 01/02/18 23:18 Plt Clumps, EDTA Not Reportable 01/02/18 23:18 Large Platelets Not Reportable 01/02/18 23:18 Giant Platelets Not Reportable 01/02/18 23:18 Platelet Satelliting Not Reportable 01/02/18 23:18 Plt Morphology Comment Not Reportable 01/02/18 23:18 RBC Morphology Not Reportable 01/02/18 23:18 Dimorphic RBCs Not Reportable 01/02/18 23:18 Polychromasia Not Reportable 01/02/18 23:18 Hypochromasia Not Reportable 01/02/18 23:18 Poikilocytosis Not Reportable 01/02/18 23:18 Anisocytosis Not Reportable 01/02/18 23:18 Microcytosis Not Reportable 01/02/18 23:18 Macrocytosis Not Reportable 01/02/18 23:18 Spherocytes Not Reportable 01/02/18 23:18 Pappenheimer Bodies Not Reportable 01/02/18 23:18 Sickle Cells Not Reportable 01/02/18 23:18 Target Cells Not Reportable 01/02/18 23:18 Tear Drop Cells Not Reportable 01/02/18 23:18 Ovalocytes Not Reportable 01/02/18 23:18 Helmet Cells Not Reportable 01/02/18 23:18 [place] Bodies Not Reportable 01/02/18 23:18 [place] Rings Not Reportable 01/02/18 23:18 [place] Cells Not Reportable 01/02/18 23:18 Bite Cells Not Reportable 01/02/18 23:18 Crenated Cell Not Reportable 01/02/18 23:18 Elliptocytes Not Reportable 01/02/18 23:18 Acanthocytes (Spur) Not Reportable 01/02/18 23:18 Rouleaux Not Reportable 01/02/18 23:18 Hemoglobin C Crystals Not Reportable 01/02/18 23:18 Schistocytes Not Reportable 01/02/18 23:18 Malaria parasites Not Reportable 01/02/18 23:18 Bert Bodies Not Reportable 01/02/18 23:18 Hem Pathologist Commnt No 01/02/18 23:18 Sodium 140 mmol/L (137-145) 01/04/18 07:26 Potassium 3.8 mmol/L (3.6-5.0) 01/04/18 07:26 Chloride 104.3 mmol/L (98-107) 01/04/18 07:26 Carbon Dioxide 24 mmol/L (22-30) 01/04/18 07:26 Anion Gap 16 mmol/L 01/04/18 07:26 BUN 12 mg/dL (9-20) 01/04/18 07:26 Creatinine 0.9 mg/dL (0.8-1.5) 01/04/18 07:26 Estimated GFR > 60 ml/min 01/04/18 07:26 BUN/Creatinine Ratio 13 % 01/04/18 07:26 Glucose 99 mg/dL (75-100) 01/04/18 07:26 Lactic Acid 1.40 mmol/L (0.7-2.0) 01/03/18 19:53 Calcium 8.7 mg/dL (8.4-10.2) 01/04/18 07:26 Total Bilirubin 0.30 mg/dL (0.1-1.2) 01/04/18 07:26 Direct Bilirubin < 0.2 mg/dL (0-0.2) 01/04/18 07:26 Indirect Bilirubin 0.1 mg/dL 01/04/18 07:26 AST 53 units/L (5-40) H 01/04/18 07:26 ALT 19 units/L (7-56) 01/04/18 07:26 Alkaline Phosphatase 45 units/L (35-129) 01/04/18 07:26 Ammonia 39.0 umol/L (25-60) 01/03/18 12:56 Total Creatine Kinase 929 units/L (55-170) H 01/04/18 07:26 CK-MB (CK-2) 9.8 ng/mL (0.0-4.0) H 01/03/18 12:56 CK-MB (CK-2) Rel Index 100.0 (0-4) H 01/03/18 12:56 Troponin T 0.011 ng/mL (0.00-0.029) 01/03/18 12:56 Total Protein 6.5 g/dL (6.3-8.2) 01/04/18 07:26 Albumin 3.0 g/dL (3.9-5) L 01/04/18 07:26 Albumin/Globulin Ratio 0.9 % 01/04/18 07:26 Triglycerides 100 mg/dL (2-149) 01/04/18 07:26 Cholesterol 126 mg/dL (50-199) 01/04/18 07:26 LDL Cholesterol Direct 82 mg/dL (50-130) 01/04/18 07:26 HDL Cholesterol 30 mg/dL (40-59) L 01/04/18 07:26 Cholesterol/HDL Ratio 4.20 % 01/04/18 07:26 Vitamin B12 508.3 pg/mL (211-911) 01/03/18 12:56 TSH 0.284 mlU/mL (0.270-4.200) 01/03/18 12:56 Urine Color Yellow (Yellow) 01/03/18 03:45 Urine Turbidity Clear (Clear) 01/03/18 03:45 Urine pH 5.0 (5.0-7.0) 01/03/18 03:45 Ur Specific [place] 1.016 (1.003-1.030) 01/03/18 03:45 Urine Protein 30 mg/dl mg/dL (Negative) 01/03/18 03:45 Urine Glucose (UA) Neg mg/dL (Negative) 01/03/18 03:45 Urine Ketones Tr mg/dL (Negative) 01/03/18 03:45 Urine Blood Mod (Negative) 01/03/18 03:45 Urine Nitrite Neg (Negative) 01/03/18 03:45 Urine Bilirubin Neg (Negative) 01/03/18 03:45 Urine Urobilinogen < 2.0 mg/dL (<2.0) 01/03/18 03:45 Ur Leukocyte Esterase Neg (Negative) 01/03/18 03:45 Urine WBC (Auto) 1.0 /HPF (0.0-6.0) 01/03/18 03:45 Urine RBC (Auto) 1.0 /HPF (0.0-6.0) 01/03/18 03:45 Urine Mucus Few /HPF 01/03/18 03:45 Urine Opiates Screen Presumptive negative 01/03/18 03:45 Urine Methadone Screen Presumptive negative 01/03/18 03:45 Ur Barbiturates Screen Presumptive negative 01/03/18 03:45 Ur Phencyclidine Scrn Presumptive negative 01/03/18 03:45 Ur Amphetamines Screen Presumptive negative 01/03/18 03:45 U Benzodiazepines Scrn Presumptive negative 01/03/18 03:45 Urine Cocaine Screen Presumptive negative 01/03/18 03:45 U Marijuana (THC) Screen Presumptive negative 01/03/18 03:45 Drugs of Abuse Note Disclamer 01/03/18 03:45 Plasma/Serum Alcohol < 0.01 % (0-0.07) 01/02/18 23:18
[2018-01-05] MEDS: ASPIRIN PO SCH (10:33)
[2018-01-05] MEDS: LOVENOX SUB-Q SCH (10:34)
--- NOTE | 2018-01-05 11:56 | Progress Note ---
Assessment and Plan 1. Encephalopathy. Multiple factors or due to UTI. Supportive. Pending EEG, TSH , RPR and ammonia. B12 508, LDL 82. 2. Acute CVA. Brain MRI without contrast, right occipital 3 mm, ischemic infarct , acute. NIHSS 0. 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 Out of windows. OT/PT, rehab and speech pathology. 3. UTI. Antibiotics. 4. BPH. Urology. 5. Arthritis and both hip pains. X-ray. If needed, orthopaedic consult. CT lumbar spine; no fracture or acute findings noted mild and the role listhesis at L4 5 ,L3 4 L4 [address] left hip nondisplaced left hip fracture, diffuse demyelination X-ray hip and pelvis; no acute abnormalities. Supportive. 6. HTN. Medicine. 7. Treat risk factors of CVA. Aspirin. He stated that he didn't take aspirin at home. 8. Plan discussed with him. 9. Sign off. Please contact weekend coverage neurology if further suggestions needed. 10. If D/C, F/U with neurology in 4-6 weeks. Subjective Date of service: 01/05/18 Principal diagnosis: Acute CVA. Interval history: Improved. Objective - Vital Sign Vital Signs - 12hr 01/05/18 01/05/18 01/05/18 01:00 04:48 04:51 Temperature 97.9 F Pulse Rate 86 76 63 Pulse Rate [ Apical] Respiratory 20 18 18 Rate Respiratory Rate [Left Hip] Blood Pressure 139/72 101/69 Blood Pressure 148/86 [Left] O2 Sat by Pulse 98 98 97 Oximetry 01/05/18 01/05/18 01/05/18 07:55 09:05 10:00 Temperature 97.1 F L 97.1 F L Pulse Rate 71 73 70 Pulse Rate [ 70 Apical] Respiratory 20 20 20 Rate Respiratory 20 Rate [Left Hip] Blood Pressure 130/75 Blood Pressure 130/75 [Left] O2 Sat by Pulse 98 96 98 Oximetry - Respiratory Respiratory: lungs clear, normal breath sounds - Cardiovascular Cardiovascular: regular rate, no murmurs - Gastrointestinal Gastrointestinal: soft, non-tender - Neurologic Cranial nerve examination: intact Speech examination: intact Detailed motor examination: other (Legs may be mild weakness, probably from hip pains.) Detailed sensory examination: intact Reflexes: 1+: ankle, bicep, knee, tricep - Psychiatric Psychiatric: mood/affect appropriate - Laboratory Findings CBC and BMP: 01/04/18 07:26 01/04/18 07:26 Abnormal Lab Findings: Abnormal Labs 01/02/18 01/02/18 01/02/18 23:18 23:18 23:18 WBC 11.2 H RBC 5.45 H MCV 79 L MCH 26 L Lymph % (Auto) [place] % (Auto) Lymph # Seg Neutrophils % Seg Neuts % (Manual) 90.0 H Lymphocytes % (Manual) 4.0 L Seg Neutrophils # Man 10.1 H Lymphocytes # (Manual) 0.4 L Glucose 133 H Lactic Acid 2.10 H* AST Total Creatine Kinase 951 H CK-MB (CK-2) CK-MB (CK-2) Rel Index Albumin 3.8 L HDL Cholesterol 01/03/18 01/03/18 01/03/18 10:15 12:56 12:56 WBC RBC MCV MCH Lymph % (Auto) [place] % (Auto) Lymph # Seg Neutrophils % Seg Neuts % (Manual) Lymphocytes % (Manual) Seg Neutrophils # Man Lymphocytes # (Manual) Glucose Lactic Acid 2.30 H* AST Total Creatine Kinase 1685 H 9.80 L CK-MB (CK-2) 9.5 H 9.8 H CK-MB (CK-2) Rel Index 100.0 H Albumin HDL Cholesterol 01/03/18 01/04/18 01/04/18 16:48 07:26 07:26 WBC RBC MCV 79 L MCH 26 L Lymph % (Auto) 12.1 L [place] % (Auto) 8.7 H Lymph # 0.9 L Seg Neutrophils % 75.1 H Seg Neuts % (Manual) Lymphocytes % (Manual) Seg Neutrophils # Man Lymphocytes # (Manual) Glucose Lactic Acid 2.50 H* AST 53 H Total Creatine Kinase 929 H CK-MB (CK-2) CK-MB (CK-2) Rel Index Albumin 3.0 L HDL Cholesterol 30 L 01/04/18 20:34 WBC RBC MCV MCH Lymph % (Auto) [place] % (Auto) Lymph # Seg Neutrophils % Seg Neuts % (Manual) Lymphocytes % (Manual) Seg Neutrophils # Man Lymphocytes # (Manual) Glucose Lactic Acid AST Total Creatine Kinase 761 H CK-MB (CK-2) CK-MB (CK-2) Rel Index Albumin HDL Cholesterol
--- NOTE | 2018-01-05 15:03 | Progress Note ---
Assessment and Plan Assessment and plan: --Severe malnutrition; supportive care nutrition supplements --Metabolic encephalopathy; resolved --Acute CVA; not a candidate for TPA neurology evaluation noted and appreciated/PT/OT Workup: CT head without contrast; no acute abnormality Echo; EF 55% MRI brain; single 3 mL focus of diffusion restriction involving right occipital cortex moderate small vessel disease Carotid Doppler; is then 50% stenosis EEG; pending --Lower extremity weakness; CT lumbar spine; no fracture or acute findings noted Mild and the role listhesis at L4 5 ,L3 4 L4 5 fusion hardware intact Continue supportive care, PT/OT --Left hip pain; CT left hip nondisplaced left hip fracture, diffuse demyelination Continue supportive care X-ray hip and pelvis; no acute abnormalities --Sepsis secondary to urinary tract infection/lactic acidosis Patient has no symptoms, WBC normal afebrile, DC antibiotics --History of BPH; continue current home medications --Rhabdomyolysis; secondary to fall, CK level 929 Preserved renal function ,Gentle hydration, monitor CK levels --DVT prophylaxis; Lovenox --PT/OT, rehabilitation --Discharge planning ; home with home health tomorrow if stable Plan of care discussed with the patient and the family member at the bedside and his nurse History Interval history: Patient seen and examined medical records reviewed Patient is receiving physical therapy at the time of my evaluation, tolerating well Complaints of generalized weakness, case management is setting up home health and home PT Alert and awake, responding appropriately Vital signs reviewed Hospitalist Physical - Constitutional Vitals: Temp Pulse Resp BP Pulse Ox 97.1 F L 70 20 130/75 98 01/05/18 09:05 01/05/18 10:00 01/05/18 10:00 01/05/18 09:05 01/05/18 10:00 General appearance: Present: no acute distress, well-nourished - EENT Eyes: Present: PERRL, EOM intact - Neck Neck: Present: supple, normal ROM, enlarged thyroid, masses or JVD - Respiratory Respiratory effort: normal - Extremities Extremities: no ischemia, No edema - Abdominal General gastrointestinal: soft, non-tender, non-distended, normal bowel sounds - Integumentary Integumentary: Present: clear, warm - Psychiatric Psychiatric: appropriate mood/affect, cooperative - Neurologic Neurologic: CNII-XII intact, moves all extremities Results - Labs CBC & Chem 7: 06/21/18 07:26 01/04/18 07:26 Labs: Laboratory Last Values WBC 7.5 K/mm3 (4.5-11.0) 01/04/18 07:26 RBC 4.58 M/mm3 (3.65-5.03) 01/04/18 07:26 Hgb 11.8 gm/dl (11.8-15.2) 01/04/18 07:26 Hct 36.1 % (35.5-45.6) D 01/04/18 07:26 MCV 79 fl (84-94) L 01/04/18 07:26 MCH 26 pg (28-32) L 01/04/18 07:26 MCHC 33 % (32-34) 01/04/18 07:26 RDW 14.4 % (13.2-15.2) 01/04/18 07:26 Plt Count 179 K/mm3 (140-440) 01/04/18 07:26 Lymph % (Auto) 12.1 % (13.4-35.0) L 01/04/18 07:26 [place] % (Auto) 8.7 % (0.0-7.3) H 01/04/18 07:26 Eos % (Auto) 4.0 % (0.0-4.3) 01/04/18 07:26 Baso % (Auto) 0.1 % (0.0-1.8) 01/04/18 07:26 Lymph # 0.9 K/mm3 (1.2-5.4) L 01/04/18 07:26 [place] # 0.7 K/mm3 (0.0-0.8) 01/04/18 07:26 Eos # 0.3 K/mm3 (0.0-0.4) 01/04/18 07:26 Baso # 0.0 K/mm3 (0.0-0.1) 01/04/18 07:26 Add Manual Diff Complete 01/02/18 23:18 Total Counted 100 01/02/18 23:18 Seg Neutrophils % 75.1 % (40.0-70.0) H 01/04/18 07:26 Seg Neuts % (Manual) 90.0 % (40.0-70.0) H 01/02/18 23:18 Band Neutrophils % 1.0 % 01/02/18 23:18 Lymphocytes % (Manual) 4.0 % (13.4-35.0) L 01/02/18 23:18 Reactive Lymphs % (Man) 0 % 01/02/18 23:18 Monocytes % (Manual) 3.0 % (0.0-7.3) 01/02/18 23:18 Eosinophils % (Manual) 2.0 % (0.0-4.3) 01/02/18 23:18 Basophils % (Manual) 0 % (0.0-1.8) 01/02/18 23:18 Metamyelocytes % 0 % 01/02/18 23:18 Myelocytes % 0 % 01/02/18 23:18 Promyelocytes % 0 % 01/02/18 23:18 Blast Cells % 0 % 01/02/18 23:18 Nucleated RBC % Not Reportable 01/02/18 23:18 Seg Neutrophils # 5.6 K/mm3 (1.8-7.7) 01/04/18 07:26 Seg Neutrophils # Man 10.1 K/mm3 (1.8-7.7) H 01/02/18 23:18 Band Neutrophils # 0.1 K/mm3 01/02/18 23:18 Lymphocytes # (Manual) 0.4 K/mm3 (1.2-5.4) L 01/02/18 23:18 Abs React Lymphs (Man) 0.0 K/mm3 01/02/18 23:18 Monocytes # (Manual) 0.3 K/mm3 (0.0-0.8) 01/02/18 23:18 Eosinophils # (Manual) 0.2 K/mm3 (0.0-0.4) 01/02/18 23:18 Basophils # (Manual) 0.0 K/mm3 (0.0-0.1) 01/02/18 23:18 Metamyelocytes # 0.0 K/mm3 01/02/18 23:18 Myelocytes # 0.0 K/mm3 01/02/18 23:18 Promyelocytes # 0.0 K/mm3 01/02/18 23:18 Blast Cells # 0.0 K/mm3 01/02/18 23:18 WBC Morphology Not Reportable 01/02/18 23:18 Hypersegmented Neuts Not Reportable 06/19/18 23:18 Hyposegmented Neuts Not Reportable 01/02/18 23:18 Hypogranular Neuts Not Reportable 01/02/18 23:18 Smudge Cells Not Reportable 01/02/18 23:18 Toxic Granulation Not Reportable 01/02/18 23:18 Toxic Vacuolation Not Reportable 01/02/18 23:18 Dohle Bodies Not Reportable 01/02/18 23:18 Pelger-Huet Anomaly Not Reportable 01/02/18 23:18 Nicole Rods Not Reportable 01/02/18 23:18 Platelet Estimate Consistent w auto 01/02/18 23:18 Clumped Platelets Not Reportable 01/02/18 23:18 Plt Clumps, EDTA Not Reportable 01/02/18 23:18 Large Platelets Not Reportable 01/02/18 23:18 Giant Platelets Not Reportable 01/02/18 23:18 Platelet Satelliting Not Reportable 01/02/18 23:18 Plt Morphology Comment Not Reportable 01/02/18 23:18 RBC Morphology Not Reportable 01/02/18 23:18 Dimorphic RBCs Not Reportable 01/02/18 23:18 Polychromasia Not Reportable 01/02/18 23:18 Hypochromasia Not Reportable 01/02/18 23:18 Poikilocytosis Not Reportable 01/02/18 23:18 Anisocytosis Not Reportable 01/02/18 23:18 Microcytosis Not Reportable 01/02/18 23:18 Macrocytosis Not Reportable 01/02/18 23:18 Spherocytes Not Reportable 01/02/18 23:18 Pappenheimer Bodies Not Reportable 01/02/18 23:18 Sickle Cells Not Reportable 01/02/18 23:18 Target Cells Not Reportable 01/02/18 23:18 Tear Drop Cells Not Reportable 01/02/18 23:18 Ovalocytes Not Reportable 01/02/18 23:18 Helmet Cells Not Reportable 01/02/18 23:18 [place] Bodies Not Reportable 01/02/18 23:18 [place] Rings Not Reportable 01/02/18 23:18 [place] Cells Not Reportable 01/02/18 23:18 Bite Cells Not Reportable 01/02/18 23:18 Crenated Cell Not Reportable 01/02/18 23:18 Elliptocytes Not Reportable 01/02/18 23:18 Acanthocytes (Spur) Not Reportable 01/02/18 23:18 Rouleaux Not Reportable 01/02/18 23:18 Hemoglobin C Crystals Not Reportable 01/02/18 23:18 Schistocytes Not Reportable 01/02/18 23:18 Malaria parasites Not Reportable 01/02/18 23:18 Bert Bodies Not Reportable 01/02/18 23:18 Hem Pathologist Commnt No 01/02/18 23:18 Sodium 140 mmol/L (137-145) 01/04/18 07:26 Potassium 3.8 mmol/L (3.6-5.0) 01/04/18 07:26 Chloride 104.3 mmol/L (98-107) 01/04/18 07:26 Carbon Dioxide 24 mmol/L (22-30) 01/04/18 07:26 Anion Gap 16 mmol/L 01/04/18 07:26 BUN 12 mg/dL (9-20) 01/04/18 07:26 Creatinine 0.9 mg/dL (0.8-1.5) 01/04/18 07:26 Estimated GFR > 60 ml/min 01/04/18 07:26 BUN/Creatinine Ratio 13 % 01/04/18 07:26 Glucose 99 mg/dL (75-100) 01/04/18 07:26 Lactic Acid 1.40 mmol/L (0.7-2.0) 01/03/18 19:53 Calcium 8.7 mg/dL (8.4-10.2) 01/04/18 07:26 Total Bilirubin 0.30 mg/dL (0.1-1.2) 01/04/18 07:26 Direct Bilirubin < 0.2 mg/dL (0-0.2) 01/04/18 07:26 Indirect Bilirubin 0.1 mg/dL 01/04/18 07:26 AST 53 units/L (5-40) H 01/04/18 07:26 ALT 19 units/L (7-56) 01/04/18 07:26 Alkaline Phosphatase 45 units/L (35-129) 01/04/18 07:26 Ammonia 39.0 umol/L (25-60) 01/03/18 12:56 Total Creatine Kinase 761 units/L (55-170) H 01/04/18 20:34 CK-MB (CK-2) 9.8 ng/mL (0.0-4.0) H 01/03/18 12:56 CK-MB (CK-2) Rel Index 100.0 (0-4) H 01/03/18 12:56 Troponin T 0.011 ng/mL (0.00-0.029) 01/03/18 12:56 Total Protein 6.5 g/dL (6.3-8.2) 01/04/18 07:26 Albumin 3.0 g/dL (3.9-5) L 01/04/18 07:26 Albumin/Globulin Ratio 0.9 % 01/04/18 07:26 Triglycerides 100 mg/dL (2-149) 01/04/18 07:26 Cholesterol 126 mg/dL (50-199) 01/04/18 07:26 LDL Cholesterol Direct 82 mg/dL (50-130) 01/04/18 07:26 HDL Cholesterol 30 mg/dL (40-59) L 01/04/18 07:26 Cholesterol/HDL Ratio 4.20 % 01/04/18 07:26 Vitamin B12 508.3 pg/mL (211-911) 01/03/18 12:56 TSH 0.284 mlU/mL (0.270-4.200) 01/03/18 12:56 Urine Color Yellow (Yellow) 01/03/18 03:45 Urine Turbidity Clear (Clear) 01/03/18 03:45 Urine pH 5.0 (5.0-7.0) 01/03/18 03:45 Ur Specific [place] 1.016 (1.003-1.030) 01/03/18 03:45 Urine Protein 30 mg/dl mg/dL (Negative) 01/03/18 03:45 Urine Glucose (UA) Neg mg/dL (Negative) 01/03/18 03:45 Urine Ketones Tr mg/dL (Negative) 01/03/18 03:45 Urine Blood Mod (Negative) 01/03/18 03:45 Urine Nitrite Neg (Negative) 01/03/18 03:45 Urine Bilirubin Neg (Negative) 01/03/18 03:45 Urine Urobilinogen < 2.0 mg/dL (<2.0) 01/03/18 03:45 Ur Leukocyte Esterase Neg (Negative) 01/03/18 03:45 Urine WBC (Auto) 1.0 /HPF (0.0-6.0) 01/03/18 03:45 Urine RBC (Auto) 1.0 /HPF (0.0-6.0) 01/03/18 03:45 Urine Mucus Few /HPF 01/03/18 03:45 Urine Opiates Screen Presumptive negative 01/03/18 03:45 Urine Methadone Screen Presumptive negative 01/03/18 03:45 Ur Barbiturates Screen Presumptive negative 01/03/18 03:45 Ur Phencyclidine Scrn Presumptive negative 01/03/18 03:45 Ur Amphetamines Screen Presumptive negative 01/03/18 03:45 U Benzodiazepines Scrn Presumptive negative 01/03/18 03:45 Urine Cocaine Screen Presumptive negative 01/03/18 03:45 U Marijuana (THC) Screen Presumptive negative 01/03/18 03:45 Drugs of Abuse Note Disclamer 01/03/18 03:45 Plasma/Serum Alcohol < 0.01 % (0-0.07) 01/02/18 23:18
--- NOTE | 2018-01-05 16:03 | Discharge Summary ---
Providers - Providers Date of Admission: 01/03/18 02:55 Date of discharge: 01/05/18 Attending physician: LAYLA SIEGEL 01/03/18 Consult to Physician [CONS] Routine Comment: Consulting Provider: BHARAT DONOVAN Physician Instructions: Reason For Exam: leg weakness 01/03/18 02:56 Occupational Therapy Evaluate and Treat [CONS] Routine Comment: Reason For Exam: Neuro deficits Physical Therapy Evaluation and Treat [CONS] Routine Comment: Reason For Exam: Neuro deficits 01/05/18 08:03 Consult to Wound/ET Nurse [CONS] Routine Reason For Exam: wound eval Primary care physician: IBIS HOANG Hospitalization Condition: Fair Disposition: DC-30 STILL A PATIENT Exam - Constitutional Vitals: Temp Pulse Resp BP Pulse Ox 97.1 F L 70 20 130/75 98 01/05/18 09:05 01/05/18 10:00 01/05/18 10:00 01/05/18 09:05 01/05/18 10:00 Plan Follow up with: IBIS HOANG MD [Primary Care Provider] - 3-5 Days
[2018-01-06] MEDS: NACL 0.9% 1000 ML 1,000 ML IV SCH ×2 (00:37→20:37)
[2018-01-06] MEDS: LOVENOX SUB-Q SCH (10:17)
[2018-01-06] MEDS: ASPIRIN PO SCH (10:17)
--- NOTE | 2018-01-06 19:01 | Progress Note ---
Assessment and Plan Assessment and plan: --Severe malnutrition; supportive care nutrition supplements --Metabolic encephalopathy; resolved --Acute CVA; not a candidate for TPA neurology evaluation noted and appreciated/PT/OT Workup: CT head without contrast; no acute abnormality Echo; EF 55% MRI brain; single 3 mL focus of diffusion restriction involving right occipital cortex moderate small vessel disease Carotid Doppler; is then 50% stenosis EEG; pending --Lower extremity weakness; CT lumbar spine; no fracture or acute findings noted Mild and the role listhesis at L4 5 ,L3 4 L4 5 fusion hardware intact Continue supportive care, PT/OT --Left hip pain; CT left hip nondisplaced left hip fracture, diffuse demyelination Continue supportive care X-ray hip and pelvis; no acute abnormalities --Sepsis secondary to urinary tract infection/lactic acidosis Patient has no symptoms, WBC normal afebrile, DC antibiotics --History of BPH; continue current home medications --Rhabdomyolysis; secondary to fall, CK level 929 Preserved renal function ,Gentle hydration, monitor CK levels --DVT prophylaxis; Lovenox --PT/OT, rehabilitation --Discharge planning ; family's request SNF/rehabilitation placement Discussed with case management, starting the paperwork Possible discharge in 1-2 days then SNF placement to set up History Interval history: Patient Ambulatory in the room Feels better no new complaints Vital signs reviewed Initially cleared for discharge with home health however family requested, SNF placement Hospitalist Physical - Constitutional Vitals: Temp Pulse Resp BP Pulse Ox 97.6 F 71 14 117/69 100 01/06/18 16:40 01/06/18 16:40 01/06/18 16:40 01/06/18 16:40 01/06/18 16:40 General appearance: Present: no acute distress, well-nourished - EENT Eyes: Present: PERRL, EOM intact - Neck Neck: Present: supple, normal ROM - Respiratory Respiratory effort: normal Respiratory: bilateral: diminished, negative: rales, rhonchi, wheezing - Cardiovascular Rhythm: regular Heart Sounds: Present: S1 & S2 - Extremities Extremities: no ischemia, No edema - Abdominal General gastrointestinal: soft, non-tender, non-distended, normal bowel sounds - Integumentary Integumentary: Present: clear, warm - Psychiatric Psychiatric: appropriate mood/affect, cooperative - Neurologic Neurologic: CNII-XII intact, moves all extremities Results - Labs CBC & Chem 7: 01/04/18 07:26 01/04/18 07:26 Labs: Laboratory Last Values WBC 7.5 K/mm3 (4.5-11.0) 01/04/18 07:26 RBC 4.58 M/mm3 (3.65-5.03) 01/04/18 07:26 Hgb 11.8 gm/dl (11.8-15.2) 01/04/18 07:26 Hct 36.1 % (35.5-45.6) D 01/04/18 07:26 MCV 79 fl (84-94) L 01/04/18 07: MCH 26 pg (28-32) L 01/04/18 07:26 MCHC 33 % (32-34) 01/04/18 07:26 RDW 14.4 % (13.2-15.2) 01/04/18 07:26 Plt Count 179 K/mm3 (140-440) 01/04/18 07:26 Lymph % (Auto) 12.1 % (13.4-35.0) L 01/04/18 07:26 [place] % (Auto) 8.7 % (0.0-7.3) H 01/04/18 07:26 Eos % (Auto) 4.0 % (0.0-4.3) 01/04/18 07:26 Baso % (Auto) 0.1 % (0.0-1.8) 01/04/18 07:26 Lymph # 0.9 K/mm3 (1.2-5.4) L 01/04/18 07:26 [place] # 0.7 K/mm3 (0.0-0.8) 01/04/18 07:26 Eos # 0.3 K/mm3 (0.0-0.4) 01/04/18 07:26 Baso # 0.0 K/mm3 (0.0-0.1) 01/04/18 07:26 Add Manual Diff Complete 01/02/18 23:18 Total Counted 100 01/02/18 23:18 Seg Neutrophils % 75.1 % (40.0-70.0) H 01/04/18 07:26 Seg Neuts % (Manual) 90.0 % (40.0-70.0) H 01/02/18 23:18 Band Neutrophils % 1.0 % 01/02/18 23:18 Lymphocytes % (Manual) 4.0 % (13.4-35.0) L 01/02/18 23:18 Reactive Lymphs % (Man) 0 % 01/02/18 23:18 Monocytes % (Manual) 3.0 % (0.0-7.3) 01/02/18 23:18 Eosinophils % (Manual) 2.0 % (0.0-4.3) 01/02/18 23:18 Basophils % (Manual) 0 % (0.0-1.8) 01/02/18 23:18 Metamyelocytes % 0 % 01/02/18 23:18 Myelocytes % 0 % 01/02/18 23:18 Promyelocytes % 0 % 01/02/18 23:18 Blast Cells % 0 % 01/02/18 23:18 Nucleated RBC % Not Reportable 01/02/18 23:18 Seg Neutrophils # 5.6 K/mm3 (1.8-7.7) 01/04/18 07:26 Seg Neutrophils # Man 10.1 K/mm3 (1.8-7.7) H 01/02/18 23:18 Band Neutrophils # 0.1 K/mm3 01/02/18 23:18 Lymphocytes # (Manual) 0.4 K/mm3 (1.2-5.4) L 01/02/18 23:18 Abs React Lymphs (Man) 0.0 K/mm3 01/02/18 23:18 Monocytes # (Manual) 0.3 K/mm3 (0.0-0.8) 01/02/18 23:18 Eosinophils # (Manual) 0.2 K/mm3 (0.0-0.4) 01/02/18 23:18 Basophils # (Manual) 0.0 K/mm3 (0.0-0.1) 01/02/18 23:18 Metamyelocytes # 0.0 K/mm3 01/02/18 23:18 Myelocytes # 0.0 K/mm3 01/02/18 23:18 Promyelocytes # 0.0 K/mm3 01/02/18 23:18 Blast Cells # 0.0 K/mm3 01/02/18 23:18 WBC Morphology Not Reportable 01/02/18 23:18 Hypersegmented Neuts Not Reportable 01/02/18 23:18 Hyposegmented Neuts Not Reportable 01/02/18 23:18 Hypogranular Neuts Not Reportable 01/02/18 23:18 Smudge Cells Not Reportable 01/02/18 23:18 Toxic Granulation Not Reportable 01/02/18 23:18 Toxic Vacuolation Not Reportable 01/02/18 23:18 Dohle Bodies Not Reportable 01/02/18 23:18 Pel[place]-Huet Anomaly Not Reportable 01/02/18 23:18 Nicole Rods Not Reportable 01/02/18 23:18 Platelet Estimate Consistent w auto 01/02/18 23:18 Clumped Platelets Not Reportable 01/02/18 23:18 Plt Clumps, EDTA Not Reportable 01/02/18 23:18 Large Platelets Not Reportable 01/02/18 23:18 Giant Platelets Not Reportable 01/02/18 23:18 Platelet Satelliting Not Reportable 01/02/18 23:18 Plt Morphology Comment Not Reportable 01/02/18 23:18 RBC Morphology Not Reportable 01/02/18 23:18 Dimorphic RBCs Not Reportable 01/02/18 23:18 Polychromasia Not Reportable 01/02/18 23:18 Hypochromasia Not Reportable 01/02/18 23:18 Poikilocytosis Not Reportable 01/02/18 23:18 Anisocytosis Not Reportable 01/02/18 23:18 Microcytosis Not Reportable 01/02/18 23:18 Macrocytosis Not Reportable 01/02/18 23:18 Spherocytes Not Reportable 01/02/18 23:18 Pappenheimer Bodies Not Reportable 01/02/18 23:18 Sickle Cells Not Reportable 01/02/18 23:18 Target Cells Not Reportable 01/02/18 23:18 Tear Drop Cells Not Reportable 01/02/18 23:18 Ovalocytes Not Reportable 01/02/18 23:18 Helmet Cells Not Reportable 01/02/18 23:18 [place] Bodies Not Reportable 01/02/18 23:18 [place] Rings Not Reportable 01/02/18 23:18 [place] Cells Not Reportable 01/02/18 23:18 Bite Cells Not Reportable 01/02/18 23:18 Crenated Cell Not Reportable 01/02/18 23:18 Elliptocytes Not Reportable 01/02/18 23:18 Acanthocytes (Spur) Not Reportable 01/02/18 23:18 Rouleaux Not Reportable 01/02/18 23:18 Hemoglobin C Crystals Not Reportable 01/02/18 23:18 Schistocytes Not Reportable 01/02/18 23:18 Malaria parasites Not Reportable 01/02/18 23:18 Bert Bodies Not Reportable 01/02/18 23:18 Hem Pathologist Commnt No 01/02/18 23:18 Sodium 140 mmol/L (137-145) 01/04/18 07:26 Potassium 3.8 mmol/L (3.6-5.0) 01/04/18 07:26 Chloride 104.3 mmol/L (98-107) 01/04/18 07:26 Carbon Dioxide 24 mmol/L (22-30) 01/04/18 07:26 Anion Gap 16 mmol/L 01/04/18 07:26 BUN 12 mg/dL (9-20) 01/04/18 07:26 Creatinine 0.9 mg/dL (0.8-1.5) 01/04/18 07:26 Estimated GFR > 60 ml/min 01/04/18 07:26 BUN/Creatinine Ratio 13 % 01/04/18 07:26 Glucose 99 mg/dL (75-100) 01/04/18 07:26 POC Glucose 82 (70-105) 01/05/18 22:50 Lactic Acid 1.40 mmol/L (0.7-2.0) 01/03/18 19:53 Calcium 8.7 mg/dL (8.4-10.2) 01/04/18 07:26 Total Bilirubin 0.30 mg/dL (0.1-1.2) 01/04/18 07:26 Direct Bilirubin < 0.2 mg/dL (0-0.2) 01/04/18 07:26 Indirect Bilirubin 0.1 mg/dL 01/04/18 07:26 AST 53 units/L (5-40) H 01/04/18 07:26 ALT 19 units/L (7-56) 01/04/18 07:26 Alkaline Phosphatase 45 units/L (35-129) 01/04/18 07:26 Ammonia 39.0 umol/L (25-60) 01/03/18 12:56 Total Creatine Kinase 761 units/L (55-170) H 01/04/18 20:34 CK-MB (CK-2) 9.8 ng/mL (0.0-4.0) H 01/03/18 12:56 CK-MB (CK-2) Rel Index 100.0 (0-4) H 01/03/18 12:56 Troponin T 0.011 ng/mL (0.00-0.029) 01/03/18 12:56 Total Protein 6.5 g/dL (6.3-8.2) 01/04/18 07:26 Albumin 3.0 g/dL (3.9-5) L 01/04/18 07:26 Albumin/Globulin Ratio 0.9 % 01/04/18 07:26 Triglycerides 100 mg/dL (2-149) 01/04/18 07:26 Cholesterol 126 mg/dL (50-199) 01/04/18 07:26 LDL Cholesterol Direct 82 mg/dL (50-130) 01/04/18 07:26 HDL Cholesterol 30 mg/dL (40-59) L 01/04/18 07:26 Cholesterol/HDL Ratio 4.20 % 01/04/18 07:26 Vitamin B12 508.3 pg/mL (211-911) 01/03/18 12:56 TSH 0.284 mlU/mL (0.270-4.200) 01/03/18 12:56 Urine Color Yellow (Yellow) 01/03/18 03:45 Urine Turbidity Clear (Clear) 01/03/18 03:45 Urine pH 5.0 (5.0-7.0) 01/03/18 03:45 Ur Specific [place] 1.016 (1.003-1.030) 01/03/18 03:45 Urine Protein 30 mg/dl mg/dL (Negative) 01/03/18 03:45 Urine Glucose (UA) Neg mg/dL (Negative) 01/03/18 03:45 Urine Ketones Tr mg/dL (Negative) 01/03/18 03:45 Urine Blood Mod (Negative) 01/03/18 03:45 Urine Nitrite Neg (Negative) 01/03/18 03:45 Urine Bilirubin Neg (Negative) 01/03/18 03:45 Urine Urobilinogen < 2.0 mg/dL (<2.0) 01/03/18 03:45 Ur Leukocyte Esterase Neg (Negative) 01/03/18 03:45 Urine WBC (Auto) 1.0 /HPF (0.0-6.0) 01/03/18 03:45 Urine RBC (Auto) 1.0 /HPF (0.0-6.0) 01/03/18 03:45 Urine Mucus Few /HPF 01/03/18 03:45 Urine Opiates Screen Presumptive negative 01/03/18 03:45 Urine Methadone Screen Presumptive negative 01/03/18 03:45 Ur Barbiturates Screen Presumptive negative 01/03/18 03:45 Ur Phencyclidine Scrn Presumptive negative 01/03/18 03:45 Ur Amphetamines Screen Presumptive negative 01/03/18 03:45 U Benzodiazepines Scrn Presumptive negative 01/03/18 03:45 Urine Cocaine Screen Presumptive negative 01/03/18 03:45 U Marijuana (THC) Screen Presumptive negative 01/03/18 03:45 Drugs of Abuse Note Disclamer 01/03/18 03:45 Plasma/Serum Alcohol < 0.01 % (0-0.07) 01/02/18 23:18
[2018-01-07] MEDS: NACL 0.9% 1000 ML 1,000 ML IV SCH ×2 (06:02→17:22)
--- NOTE | 2018-01-07 08:51 | Progress Note ---
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 ,L3 4 L4 5 fusion hardware intact Continue supportive care, PT/OT --Left hip pain; CT left hip no displaced left hip fracture noted, diffuse demyelination Continue supportive care, X-ray hip and pelvis; no acute abnormalities --Possible urinary tract infection/lactic acidosis Patient has no symptoms, WBC normal afebrile, DC antibiotics --History of BPH; continue current home medications --Rhabdomyolysis; secondary to fall, CK level 929 Preserved renal function ,Gentle hydration, monitor CK levels --DVT prophylaxis; Lovenox --PT/OT, rehabilitation --Discharge planning ; family's request SNF/rehabilitation placement Patient is medically stable for discharge Awaiting SNF placement Possible discharge in 1-2 days when SNF placement to set up History Interval history: Patient seen and examined this morning medical records reviewed Patient feels better no new complaints Medically stable for discharge, awaiting SNF placement Patient alert awake oriented 3 Vital signs stable Hospitalist Physical - Constitutional Vitals: Temp Pulse Resp BP Pulse Ox 98.8 F 71 16 113/62 96 01/07/18 02:04 01/07/18 02:04 01/07/18 02:04 01/07/18 02:04 01/07/18 02:04 General appearance: Present: no acute distress, well-nourished - EENT Eyes: Present: PERRL, EOM intact - Neck Neck: Present: supple, normal ROM - Respiratory Respiratory effort: normal Respiratory: bilateral: diminished, negative: rales, rhonchi, wheezing - Cardiovascular Rhythm: regular Heart Sounds: Present: S1 & S2 - Extremities Extremities: no ischemia, No edema - Abdominal General gastrointestinal: soft, non-tender, non-distended, normal bowel sounds - Integumentary Integumentary: Present: clear, warm - Psychiatric Psychiatric: appropriate mood/affect, cooperative - Neurologic Neurologic: CNII-XII intact, moves all extremities Results - Labs CBC & Chem 7: 01/04/18 07:26 01/04/18 07:26 Labs: Laboratory Last Values WBC 7.5 K/mm3 (4.5-11.0) 01/04/18 07:26 RBC 4.58 M/mm3 (3.65-5.03) 01/04/18 07:26 Hgb 11.8 gm/dl (11.8-15.2) 01/04/18 07:26 Hct 36.1 % (35.5-45.6) D 01/04/18 07:26 MCV 79 fl (84-94) L 01/04/18 07:26 MCH 26 pg (28-32) L 01/04/18 07: MCHC 33 % (32-34) 01/04/18 07: RDW 14.4 % (13.2-15.2) 01/04/18 07:26 Plt Count 179 K/mm3 (140-440) 01/04/18 07:26 Lymph % (Auto) 12.1 % (13.4-35.0) L 01/04/18 07:26 [place] % (Auto) 8.7 % (0.0-7.3) H 01/04/18 07:26 Eos % (Auto) 4.0 % (0.0-4.3) 01/04/18 07:26 Baso % (Auto) 0.1 % (0.0-1.8) 01/04/18 07:26 Lymph # 0.9 K/mm3 (1.2-5.4) L 01/04/18 07:26 [place] # 0.7 K/mm3 (0.0-0.8) 01/04/18 07:26 Eos # 0.3 K/mm3 (0.0-0.4) 01/04/18 07:26 Baso # 0.0 K/mm3 (0.0-0.1) 01/04/18 07:26 Add Manual Diff Complete 01/02/18 23:18 Total Counted 100 01/02/18 23:18 Seg Neutrophils % 75.1 % (40.0-70.0) H 01/04/18 07:26 Seg Neuts % (Manual) 90.0 % (40.0-70.0) H 01/02/18 23:18 Band Neutrophils % 1.0 % 01/02/18 23:18 Lymphocytes % (Manual) 4.0 % (13.4-35.0) L 01/02/18 23:18 Reactive Lymphs % (Man) 0 % 01/02/18 23:18 Monocytes % (Manual) 3.0 % (0.0-7.3) 01/02/18 23:18 Eosinophils % (Manual) 2.0 % (0.0-4.3) 01/02/18 23:18 Basophils % (Manual) 0 % (0.0-1.8) 01/02/18 23:18 Metamyelocytes % 0 % 01/02/18 23:18 Myelocytes % 0 % 01/02/18 23:18 Promyelocytes % 0 % 01/02/18 23:18 Blast Cells % 0 % 01/02/18 23:18 Nucleated RBC % Not Reportable 01/02/18 23:18 Seg Neutrophils # 5.6 K/mm3 (1.8-7.7) 01/04/18 07:26 Seg Neutrophils # Man 10.1 K/mm3 (1.8-7.7) H 01/02/18 23:18 Band Neutrophils # 0.1 K/mm3 01/02/18 23:18 Lymphocytes # (Manual) 0.4 K/mm3 (1.2-5.4) L 01/02/18 23:18 Abs React Lymphs (Man) 0.0 K/mm3 01/02/18 23:18 Monocytes # (Manual) 0.3 K/mm3 (0.0-0.8) 01/02/18 23:18 Eosinophils # (Manual) 0.2 K/mm3 (0.0-0.4) 01/02/18 23:18 Basophils # (Manual) 0.0 K/mm3 (0.0-0.1) 01/02/18 23:18 Metamyelocytes # 0.0 K/mm3 01/02/18 23:18 Myelocytes # 0.0 K/mm3 01/02/18 23:18 Promyelocytes # 0.0 K/mm3 01/02/18 23:18 Blast Cells # 0.0 K/mm3 01/02/18 23:18 WBC Morphology Not Reportable 01/02/18 23:18 Hypersegmented Neuts Not Reportable 01/02/18 23:18 Hyposegmented Neuts Not Reportable 01/02/18 23:18 Hypogranular Neuts Not Reportable 01/02/18 23:18 Smudge Cells Not Reportable 01/02/18 23:18 Toxic Granulation Not Reportable 01/02/18 23:18 Toxic Vacuolation Not Reportable 01/02/18 23:18 Dohle Bodies Not Reportable 01/02/18 23:18 Pelger-Huet Anomaly Not Reportable 01/02/18 23:18 Nicole Rods Not Reportable 01/02/18 23:18 Platelet Estimate Consistent w auto 01/02/18 23:18 Clumped Platelets Not Reportable 01/02/18 23:18 Plt Clumps, EDTA Not Reportable 01/02/18 23:18 Large Platelets Not Reportable 01/02/18 23:18 Giant Platelets Not Reportable 01/02/18 23:18 Platelet Satelliting Not Reportable 01/02/18 23:18 Plt Morphology Comment Not Reportable 01/02/18 23:18 RBC Morphology Not Reportable 01/02/18 23:18 Dimorphic RBCs Not Reportable 01/02/18 23:18 Polychromasia Not Reportable 01/02/18 23:18 Hypochromasia Not Reportable 01/02/18 23:18 Poikilocytosis Not Reportable 01/02/18 23:18 Anisocytosis Not Reportable 01/02/18 23:18 Microcytosis Not Reportable 01/02/18 23:18 Macrocytosis Not Reportable 01/02/18 23:18 Spherocytes Not Reportable 01/02/18 23:18 Pappenheimer Bodies Not Reportable 01/02/18 23:18 Sickle Cells Not Reportable 01/02/18 23:18 Target Cells Not Reportable 01/02/18 23:18 Tear Drop Cells Not Reportable 01/02/18 23:18 Ovalocytes Not Reportable 01/02/18 23:18 Helmet Cells Not Reportable 01/02/18 23:18 [place] Bodies Not Reportable 01/02/18 23:18 [place] Rings Not Reportable 01/02/18 23:18 [place] Cells Not Reportable 01/02/18 23:18 Bite Cells Not Reportable 01/02/18 23:18 Crenated Cell Not Reportable 01/02/18 23:18 Elliptocytes Not Reportable 01/02/18 23:18 Acanthocytes (Spur) Not Reportable 01/02/18 23:18 Rouleaux Not Reportable 01/02/18 23:18 Hemoglobin C Crystals Not Reportable 01/02/18 23:18 Schistocytes Not Reportable 01/02/18 23:18 Malaria parasites Not Reportable 01/02/18 23:18 Bert Bodies Not Reportable 01/02/18 23:18 Hem Pathologist Commnt No 01/02/18 23:18 Sodium 140 mmol/L (137-145) 01/04/18 07:26 Potassium 3.8 mmol/L (3.6-5.0) 01/04/18 07:26 Chloride 104.3 mmol/L (98-107) 01/04/18 07:26 Carbon Dioxide 24 mmol/L (22-30) 01/04/18 07:26 Anion Gap 16 mmol/L 01/04/18 07:26 BUN 12 mg/dL (9-20) 01/04/18 07:26 Creatinine 0.9 mg/dL (0.8-1.5) 01/04/18 07:26 Estimated GFR > 60 ml/min 01/04/18 07:26 BUN/Creatinine Ratio 13 % 01/04/18 07:26 Glucose 99 mg/dL (75-100) 01/04/18 07:26 POC Glucose 82 (70-105) 01/05/18 22:50 Lactic Acid 1.40 mmol/L (0.7-2.0) 01/03/18 19:53 Calcium 8.7 mg/dL (8.4-10.2) 01/04/18 07:26 Total Bilirubin 0.30 mg/dL (0.1-1.2) 01/04/18 07:26 Direct Bilirubin < 0.2 mg/dL (0-0.2) 01/04/18 07:26 Indirect Bilirubin 0.1 mg/dL 01/04/18 07:26 AST 53 units/L (5-40) H 01/04/18 07:26 ALT 19 units/L (7-56) 01/04/18 07:26 Alkaline Phosphatase 45 units/L (35-129) 01/04/18 07:26 Ammonia 39.0 umol/L (25-60) 01/03/18 12:56 Total Creatine Kinase 761 units/L (55-170) H 01/04/18 20:34 CK-MB (CK-2) 9.8 ng/mL (0.0-4.0) H 01/03/18 12:56 CK-MB (CK-2) Rel Index 100.0 (0-4) H 01/03/18 12:56 Troponin T 0.011 ng/mL (0.00-0.029) 01/03/18 12:56 Total Protein 6.5 g/dL (6.3-8.2) 01/04/18 07:26 Albumin 3.0 g/dL (3.9-5) L 01/04/18 07:26 Albumin/Globulin Ratio 0.9 % 01/04/18 07:26 Triglycerides 100 mg/dL (2-149) 01/04/18 07:26 Cholesterol 126 mg/dL (50-199) 01/04/18 07:26 LDL Cholesterol Direct 82 mg/dL (50-130) 01/04/18 07:26 HDL Cholesterol 30 mg/dL (40-59) L 01/04/18 07:26 Cholesterol/HDL Ratio 4.20 % 01/04/18 07:26 Vitamin B12 508.3 pg/mL (211-911) 01/03/18 12:56 TSH 0.284 mlU/mL (0.270-4.200) 01/03/18 12:56 Urine Color Yellow (Yellow) 01/03/18 03:45 Urine Turbidity Clear (Clear) 01/03/18 03:45 Urine pH 5.0 (5.0-7.0) 01/03/18 03:45 Ur Specific [place] 1.016 (1.003-1.030) 01/03/18 03:45 Urine Protein 30 mg/dl mg/dL (Negative) 01/03/18 03:45 Urine Glucose (UA) Neg mg/dL (Negative) 01/03/18 03:45 Urine Ketones Tr mg/dL (Negative) 01/03/18 03:45 Urine Blood Mod (Negative) 01/03/18 03:45 Urine Nitrite Neg (Negative) 01/03/18 03:45 Urine Bilirubin Neg (Negative) 01/03/18 03:45 Urine Urobilinogen < 2.0 mg/dL (<2.0) 01/03/18 03:45 Ur Leukocyte Esterase Neg (Negative) 01/03/18 03:45 Urine WBC (Auto) 1.0 /HPF (0.0-6.0) 01/03/18 03:45 Urine RBC (Auto) 1.0 /HPF (0.0-6.0) 01/03/18 03:45 Urine Mucus Few /HPF 01/03/18 03:45 Urine Opiates Screen Presumptive negative 01/03/18 03:45 Urine Methadone Screen Presumptive negative 01/03/18 03:45 Ur Barbiturates Screen Presumptive negative 01/03/18 03:45 Ur Phencyclidine Scrn Presumptive negative 01/03/18 03:45 Ur Amphetamines Screen Presumptive negative 01/03/18 03:45 U Benzodiazepines Scrn Presumptive negative 01/03/18 03:45 Urine Cocaine Screen Presumptive negative 01/03/18 03:45 U Marijuana (THC) Screen Presumptive negative 01/03/18 03:45 Drugs of Abuse Note Disclamer 01/03/18 03:45 Plasma/Serum Alcohol < 0.01 % (0-0.07) 01/02/18 23:18
[2018-01-07] MEDS: ASPIRIN PO SCH (10:08)
[2018-01-07] MEDS: LOVENOX SUB-Q SCH (10:08)
[2018-01-08] MEDS: NACL 0.9% 1000 ML 1,000 ML IV SCH ×2 (02:10→22:03)
[2018-01-08 06:42] LABS: Basophils # (Auto) 0.1 K/mm3 (0.0-0.1); Basophils % (Auto) 0.9 % (0.0-1.8); Eosinophils # (Auto) 0.5 K/mm3 (0.0-0.4); Hematocrit 32.2 % (35.5-45.6); Hemoglobin 10.7 gm/dl (11.8-15.2); Lymphocytes % (Auto) 26.2 % (13.4-35.0); Mean Corpuscular HGB Conc 33 % (32-34); Mean Corpuscular Hemoglobin 26 pg (28-32); Mean Corpuscular Volume 79 fl (84-94); Monocytes # (Auto) 0.7 K/mm3 (0.0-0.8); Monocytes % (Auto) 9.1 % (0.0-7.3); Platelet Count 225 K/mm3 (140-440); Red Blood Count 4.05 M/mm3 (3.65-5.03); Red Cell Distribution Width 14.1 % (13.2-15.2)
[2018-01-08 07:09] LABS: BUN/Creatinine Ratio 9; Blood Urea Nitrogen 6 mg/dL (9-20); Calcium 8.5 mg/dL (8.4-10.2); Hemolysis Index 10
[2018-01-08] MEDS ORDERED: K-DUR PO NR (07:28)
[2018-01-08] MEDS: ASPIRIN PO SCH (10:58)
[2018-01-08] MEDS: LOVENOX SUB-Q SCH (12:54)
--- NOTE | 2018-01-08 13:44 | Progress Note ---
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 Residual weakness, physical therapy occupational therapy rehabilitation Neuro workup ; CT head without contrast; no acute abnormality Echo; EF 55% MRI brain; single 3 mL focus of diffusion restriction involving right occipital cortex moderate small vessel disease Carotid Doppler; is then 50% stenosis EEG; pending --Lower extremity weakness; CT lumbar spine; no fracture or acute findings noted Mild and the role listhesis at L4 5 ,L3 4 L4 5 fusion hardware intact Continue supportive care, PT/OT --Left hip pain; CT left hip no displaced left hip fracture noted, diffuse demyelination Continue supportive care, X-ray hip and pelvis; no acute abnormalities --History of BPH; continue current home medications --DVT prophylaxis; Lovenox --PT/OT, rehabilitation --Patient is medically stable for discharge Weighting SNF placement Plan of care discussed with the patient, his nurse and case management History Interval history: Patient seen and examined medical records reviewed feels better ambulated in the room, Not no acute distress No new events reported Vital signs reviewed Hospitalist Physical - Constitutional Vitals: Temp Pulse Resp BP Pulse Ox 98.6 F 70 16 134/77 95 01/08/18 08:34 01/08/18 08:34 01/08/18 08:34 01/08/18 08:34 01/08/18 08:34 General appearance: Present: no acute distress, well-nourished - EENT Eyes: Present: PERRL, EOM intact - Neck Neck: Present: supple, normal ROM - Respiratory Respiratory effort: normal, labored Respiratory: bilateral: diminished, negative: rales, rhonchi, wheezing - Cardiovascular Rhythm: regular Heart Sounds: Present: S1 & S2 - Extremities Extremities: no ischemia, No edema - Abdominal General gastrointestinal: soft, non-tender, non-distended, normal bowel sounds - Integumentary Integumentary: Present: clear, warm - Psychiatric Psychiatric: appropriate mood/affect, cooperative - Neurologic Neurologic: CNII-XII intact, other (residual weakness) Results - Labs CBC & Chem 7: 01/08/18 06:09 01/08/18 06:09 Labs: Laboratory Last Values WBC 7.7 K/mm3 (4.5-11.0) 01/08/18 06:09 RBC 4.05 M/mm3 (3.65-5.03) 01/08/18 06:09 Hgb 10.7 gm/dl (11.8-15.2) L 01/08/18 06:09 Hct 32.2 % (35.5-45.6) L 01/08/18 06:09 MCV 79 fl (84-94) L 01/08/18 06:09 MCH 26 pg (28-32) L 01/08/18 06:09 MCHC 33 % (32-34) 01/08/18 06:09 RDW 14.1 % (13.2-15.2) 01/08/18 06:09 Plt Count 225 K/mm3 (140-440) 01/08/18 06:09 Lymph % (Auto) 26.2 % (13.4-35.0) 01/08/18 06:09 [place] % (Auto) 9.1 % (0.0-7.3) H 01/08/18 06:09 Eos % (Auto) 7.0 % (0.0-4.3) H 01/08/18 06:09 Baso % (Auto) 0.9 % (0.0-1.8) 01/08/18 06:09 Lymph # 2.0 K/mm3 (1.2-5.4) 01/08/18 06:09 [place] # 0.7 K/mm3 (0.0-0.8) 01/08/18 06:09 Eos # 0.5 K/mm3 (0.0-0.4) H 01/08/18 06:09 Baso # 0.1 K/mm3 (0.0-0.1) 01/08/18 06:09 Add Manual Diff Complete 01/02/18 23:18 Total Counted 100 01/02/18 23:18 Seg Neutrophils % 56.8 % (40.0-70.0) 01/08/18 06:09 Seg Neuts % (Manual) 90.0 % (40.0-70.0) H 01/02/18 23:18 Band Neutrophils % 1.0 % 01/02/18 23:18 Lymphocytes % (Manual) 4.0 % (13.4-35.0) L 01/02/18 23:18 Reactive Lymphs % (Man) 0 % 01/02/18 23:18 Monocytes % (Manual) 3.0 % (0.0-7.3) 01/02/18 23:18 Eosinophils % (Manual) 2.0 % (0.0-4.3) 01/02/18 23:18 Basophils % (Manual) 0 % (0.0-1.8) 01/02/18 23:18 Metamyelocytes % 0 % 01/02/18 23:18 Myelocytes % 0 % 01/02/18 23:18 Promyelocytes % 0 % 01/02/18 23:18 Blast Cells % 0 % 01/02/18 23:18 Nucleated RBC % Not Reportable 01/02/18 23:18 Seg Neutrophils # 4.4 K/mm3 (1.8-7.7) 01/08/18 06:09 Seg Neutrophils # Man 10.1 K/mm3 (1.8-7.7) H 01/02/18 23:18 Band Neutrophils # 0.1 K/mm3 01/02/18 23:18 Lymphocytes # (Manual) 0.4 K/mm3 (1.2-5.4) L 01/02/18 23:18 Abs React Lymphs (Man) 0.0 K/mm3 01/02/18 23:18 Monocytes # (Manual) 0.3 K/mm3 (0.0-0.8) 01/02/18 23:18 Eosinophils # (Manual) 0.2 K/mm3 (0.0-0.4) 01/02/18 23:18 Basophils # (Manual) 0.0 K/mm3 (0.0-0.1) 01/02/18 23:18 Metamyelocytes # 0.0 K/mm3 01/02/18 23:18 Myelocytes # 0.0 K/mm3 01/02/18 23:18 Promyelocytes # 0.0 K/mm3 01/02/18 23:18 Blast Cells # 0.0 K/mm3 01/02/18 23:18 WBC Morphology Not Reportable 01/02/18 23:18 Hypersegmented Neuts Not Reportable 01/02/18 23:18 Hyposegmented Neuts Not Reportable 01/02/18 23:18 Hypogranular Neuts Not Reportable 01/02/18 23:18 Smudge Cells Not Reportable 01/02/18 23:18 Toxic Granulation Not Reportable 01/02/18 23:18 Toxic Vacuolation Not Reportable 01/02/18 23:18 Dohle Bodies Not Reportable 01/02/18 23:18 Pelger-Huet Anomaly Not Reportable 01/02/18 23:18 Nicole Rods Not Reportable 01/02/18 23:18 Platelet Estimate Consistent w auto 01/02/18 23:18 Clumped Platelets Not Reportable 01/02/18 23:18 Plt Clumps, EDTA Not Reportable 01/02/18 23:18 Large Platelets Not Reportable 01/02/18 23:18 Giant Platelets Not Reportable 01/02/18 23:18 Platelet Satelliting Not Reportable 01/02/18 23:18 Plt Morphology Comment Not Reportable 01/02/18 23:18 RBC Morphology Not Reportable 01/02/18 23:18 Dimorphic RBCs Not Reportable 01/02/18 23:18 Polychromasia Not Reportable 01/02/18 23:18 Hypochromasia Not Reportable 01/02/18 23:18 Poikilocytosis Not Reportable 01/02/18 23:18 Anisocytosis Not Reportable 01/02/18 23:18 Microcytosis Not Reportable 01/02/18 23:18 Macrocytosis Not Reportable 01/02/18 23:18 Spherocytes Not Reportable 01/02/18 23:18 Pappenheimer Bodies Not Reportable 01/02/18 23:18 Sickle Cells Not Reportable 01/02/18 23:18 Target Cells Not Reportable 01/02/18 23:18 Tear Drop Cells Not Reportable 01/02/18 23:18 Ovalocytes Not Reportable 01/02/18 23:18 Helmet Cells Not Reportable 01/02/18 23:18 [place] Bodies Not Reportable 01/02/18 23:18 [place] Rings Not Reportable 01/02/18 23:18 [place] Cells Not Reportable 01/02/18 23:18 Bite Cells Not Reportable 01/02/18 23:18 Crenated Cell Not Reportable 01/02/18 23:18 Elliptocytes Not Reportable 01/02/18 23:18 Acanthocytes (Spur) Not Reportable 01/02/18 23:18 Rouleaux Not Reportable 01/02/18 23:18 Hemoglobin C Crystals Not Reportable 01/02/18 23:18 Schistocytes Not Reportable 01/02/18 23:18 Malaria parasites Not Reportable 01/02/18 23:18 Bert Bodies Not Reportable 01/02/18 23:18 Hem Pathologist Commnt No 01/02/18 23:18 Sodium 142 mmol/L (137-145) 01/08/18 06:09 Potassium 3.4 mmol/L (3.6-5.0) L 01/08/18 06:09 Chloride 104.2 mmol/L (98-107) 01/08/18 06:09 Carbon Dioxide 28 mmol/L (22-30) 01/08/18 06:09 Anion Gap 13 mmol/L 01/08/18 06:09 BUN 6 mg/dL (9-20) L 01/08/18 06:09 Creatinine 0.7 mg/dL (0.8-1.5) L 01/08/18 06:09 Estimated GFR > 60 ml/min 01/08/18 06:09 BUN/Creatinine Ratio 9 % 01/08/18 06:09 Glucose 84 mg/dL (75-100) 01/08/18 06:09 POC Glucose 82 (70-105) 01/05/18 22:50 Lactic Acid 1.40 mmol/L (0.7-2.0) 01/03/18 19:53 Calcium 8.5 mg/dL (8.4-10.2) 01/08/18 06:09 Total Bilirubin 0.30 mg/dL (0.1-1.2) 01/04/18 07:26 Direct Bilirubin < 0.2 mg/dL (0-0.2) 01/04/18 07:26 Indirect Bilirubin 0.1 mg/dL 01/04/18 07:26 AST 53 units/L (5-40) H 01/04/18 07:26 ALT 19 units/L (7-56) 01/04/18 07:26 Alkaline Phosphatase 45 units/L (35-129) 01/04/18 07:26 Ammonia 39.0 umol/L (25-60) 01/03/18 12:56 Total Creatine Kinase 166 units/L (55-170) 01/08/18 06:09 CK-MB (CK-2) 9.8 ng/mL (0.0-4.0) H 01/03/18 12:56 CK-MB (CK-2) Rel Index 100.0 (0-4) H 01/03/18 12:56 Troponin T 0.011 ng/mL (0.00-0.029) 01/03/18 12:56 Total Protein 6.5 g/dL (6.3-8.2) 01/04/18 07:26 Albumin 3.0 g/dL (3.9-5) L 01/04/18 07:26 Albumin/Globulin Ratio 0.9 % 01/04/18 07:26 Triglycerides 100 mg/dL (2-149) 01/04/18 07:26 Cholesterol 126 mg/dL (50-199) 01/04/18 07:26 LDL Cholesterol Direct 82 mg/dL (50-130) 01/04/18 07:26 HDL Cholesterol 30 mg/dL (40-59) L 01/04/18 07:26 Cholesterol/HDL Ratio 4.20 % 01/04/18 07:26 Vitamin B12 508.3 pg/mL (211-911) 01/03/18 12:56 TSH 0.284 mlU/mL (0.270-4.200) 01/03/18 12:56 Urine Color Yellow (Yellow) 01/03/18 03:45 Urine Turbidity Clear (Clear) 01/03/18 03:45 Urine pH 5.0 (5.0-7.0) 01/03/18 03:45 Ur Specific [place] 1.016 (1.003-1.030) 01/03/18 03:45 Urine Protein 30 mg/dl mg/dL (Negative) 01/03/18 03:45 Urine Glucose (UA) Neg mg/dL (Negative) 01/03/18 03:45 Urine Ketones Tr mg/dL (Negative) 01/03/18 03:45 Urine Blood Mod (Negative) 01/03/18 03:45 Urine Nitrite Neg (Negative) 01/03/18 03:45 Urine Bilirubin Neg (Negative) 01/03/18 03:45 Urine Urobilinogen < 2.0 mg/dL (<2.0) 01/03/18 03:45 Ur Leukocyte Esterase Neg (Negative) 01/03/18 03:45 Urine WBC (Auto) 1.0 /HPF (0.0-6.0) 01/03/18 03:45 Urine RBC (Auto) 1.0 /HPF (0.0-6.0) 01/03/18 03:45 Urine Mucus Few /HPF 01/03/18 03:45 Urine Opiates Screen Presumptive negative 01/03/18 03:45 Urine Methadone Screen Presumptive negative 01/03/18 03:45 Ur Barbiturates Screen Presumptive negative 01/03/18 03:45 Ur Phencyclidine Scrn Presumptive negative 01/03/18 03:45 Ur Amphetamines Screen Presumptive negative 01/03/18 03:45 U Benzodiazepines Scrn Presumptive negative 01/03/18 03:45 Urine Cocaine Screen Presumptive negative 01/03/18 03:45 U Marijuana (THC) Screen Presumptive negative 01/03/18 03:45 Drugs of Abuse Note Disclamer 01/03/18 03:45 Plasma/Serum Alcohol < 0.01 % (0-0.07) 01/02/18 23:18
--- NOTE | 2018-01-09 08:28 | Progress Note ---
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 Residual weakness, physical therapy occupational therapy rehabilitation --Rhabdomyolysis; secondary to fall, CK level improved Preserved renal function ,Gentle hydration, Neuro workup ; CT head without contrast; no acute abnormality Echo; EF 55% MRI brain; single 3 mL focus of diffusion restriction involving right occipital cortex moderate small vessel disease Carotid Doppler; is then 50% stenosis EEG; pending --Lower extremity weakness; CT lumbar spine; no fracture or acute findings noted Mild and the role listhesis at L4 5 ,L3 4 L4 5 fusion hardware intact Continue supportive care, PT/OT --Left hip pain; CT left hip no displaced left hip fracture noted, diffuse demyelination Continue supportive care, X-ray hip and pelvis; no acute abnormalities --History of BPH; continue current home medications --DVT prophylaxis; Lovenox --PT/OT, rehabilitation --Patient is medically stable for discharge Pending SNF/rehabilitation placement History Interval history: Patient seen and examined medical records reviewed No new events reported by the nursing Patient feels better no new complaints Medically stable for discharge, awaiting SNF/rehab placement Vital Signs reviewed Hospitalist Physical - Constitutional Vitals: Temp Pulse Resp BP Pulse Ox 98.3 F 82 20 161/91 99 01/09/18 02:39 01/09/18 02:39 01/09/18 02:39 01/09/18 02:39 01/09/18 02:39 General appearance: Present: no acute distress, well-nourished - EENT Eyes: Present: PERRL, EOM intact - Neck Neck: Present: supple, normal ROM - Respiratory Respiratory effort: normal Respiratory: bilateral: diminished, negative: rales, rhonchi, wheezing - Cardiovascular Rhythm: regular Heart Sounds: Present: S1 & S2 - Extremities Extremities: no ischemia, No edema - Abdominal General gastrointestinal: soft, non-tender, non-distended, normal bowel sounds - Integumentary Integumentary: Present: clear, warm - Psychiatric Psychiatric: appropriate mood/affect, cooperative - Neurologic Neurologic: CNII-XII intact, moves all extremities Results - Labs CBC & Chem 7: 01/08/18 06:09 01/08/18 06:09 Labs: Laboratory Last Values WBC 7.7 K/mm3 (4.5-11.0) 01/08/18 06:09 RBC 4.05 M/mm3 (3.65-5.03) 01/08/18 06:09 Hgb 10.7 gm/dl (11.8-15.2) L 01/08/18 06:09 Hct 32.2 % (35.5-45.6) L 01/08/18 06:09 MCV 79 fl (84-94) L 01/08/18 06:09 MCH 26 pg (28-32) L 01/08/18 06:09 MCHC 33 % (32-34) 01/08/18 06:09 RDW 14.1 % (13.2-15.2) 01/08/18 06:09 Plt Count 225 K/mm3 (140-440) 01/08/18 06:09 Lymph % (Auto) 26.2 % (13.4-35.0) 01/08/18 06:09 [place] % (Auto) 9.1 % (0.0-7.3) H 01/08/18 06:09 Eos % (Auto) 7.0 % (0.0-4.3) H 01/08/18 06:09 Baso % (Auto) 0.9 % (0.0-1.8) 01/08/18 06:09 Lymph # 2.0 K/mm3 (1.2-5.4) 01/08/18 06:09 [place] # 0.7 K/mm3 (0.0-0.8) 01/08/18 06:09 Eos # 0.5 K/mm3 (0.0-0.4) H 01/08/18 06:09 Baso # 0.1 K/mm3 (0.0-0.1) 01/08/18 06:09 Add Manual Diff Complete 01/02/18 23:18 Total Counted 100 01/02/18 23:18 Seg Neutrophils % 56.8 % (40.0-70.0) 01/08/18 06:09 Seg Neuts % (Manual) 90.0 % (40.0-70.0) H 01/02/18 23:18 Band Neutrophils % 1.0 % 01/02/18 23:18 Lymphocytes % (Manual) 4.0 % (13.4-35.0) L 01/02/18 23:18 Reactive Lymphs % (Man) 0 % 01/02/18 23:18 Monocytes % (Manual) 3.0 % (0.0-7.3) 01/02/18 23:18 Eosinophils % (Manual) 2.0 % (0.0-4.3) 01/02/18 23:18 Basophils % (Manual) 0 % (0.0-1.8) 01/02/18 23:18 Metamyelocytes % 0 % 01/02/18 23:18 Myelocytes % 0 % 01/02/18 23:18 Promyelocytes % 0 % 01/02/18 23:18 Blast Cells % 0 % 01/02/18 23:18 Nucleated RBC % Not Reportable 01/02/18 23:18 Seg Neutrophils # 4.4 K/mm3 (1.8-7.7) 01/08/18 06:09 Seg Neutrophils # Man 10.1 K/mm3 (1.8-7.7) H 01/02/18 23:18 Band Neutrophils # 0.1 K/mm3 01/02/18 23:18 Lymphocytes # (Manual) 0.4 K/mm3 (1.2-5.4) L 01/02/18 23:18 Abs React Lymphs (Man) 0.0 K/mm3 01/02/18 23:18 Monocytes # (Manual) 0.3 K/mm3 (0.0-0.8) 01/02/18 23:18 Eosinophils # (Manual) 0.2 K/mm3 (0.0-0.4) 01/02/18 23:18 Basophils # (Manual) 0.0 K/mm3 (0.0-0.1) 01/02/18 23:18 Metamyelocytes # 0.0 K/mm3 01/02/18 23:18 Myelocytes # 0.0 K/mm3 01/02/18 23:18 Promyelocytes # 0.0 K/mm3 01/02/18 23:18 Blast Cells # 0.0 K/mm3 01/02/18 23:18 WBC Morphology Not Reportable 01/02/18 23:18 Hypersegmented Neuts Not Reportable 01/02/18 23:18 Hyposegmented Neuts Not Reportable 01/02/18 23:18 Hypogranular Neuts Not Reportable 01/02/18 23:18 Smudge Cells Not Reportable 01/02/18 23:18 Toxic Granulation Not Reportable 01/02/18 23:18 Toxic Vacuolation Not Reportable 01/02/18 23:18 Dohle Bodies Not Reportable 01/02/18 23:18 Pelger-Huet Anomaly Not Reportable 01/02/18 23:18 Nicole Rods Not Reportable 01/02/18 23:18 Platelet Estimate Consistent w auto 01/02/18 23:18 Clumped Platelets Not Reportable 01/02/18 23:18 Plt Clumps, EDTA Not Reportable 01/02/18 23:18 Large Platelets Not Reportable 01/02/18 23:18 Giant Platelets Not Reportable 01/02/18 23:18 Platelet Satelliting Not Reportable 01/02/18 23:18 Plt Morphology Comment Not Reportable 01/02/18 23:18 RBC Morphology Not Reportable 01/02/18 23:18 Dimorphic RBCs Not Reportable 01/02/18 23:18 Polychromasia Not Reportable 01/02/18 23:18 Hypochromasia Not Reportable 01/02/18 23:18 Poikilocytosis Not Reportable 01/02/18 23:18 Anisocytosis Not Reportable 01/02/18 23:18 Microcytosis Not Reportable 01/02/18 23:18 Macrocytosis Not Reportable 01/02/18 23:18 Spherocytes Not Reportable 01/02/18 23:18 Pappenheimer Bodies Not Reportable 01/02/18 23:18 Sickle Cells Not Reportable 01/02/18 23:18 Target Cells Not Reportable 01/02/18 23:18 Tear Drop Cells Not Reportable 01/02/18 23:18 Ovalocytes Not Reportable 01/02/18 23:18 Helmet Cells Not Reportable 01/02/18 23:18 [place] Bodies Not Reportable 01/02/18 23:18 Reed Rings Not Reportable 01/02/18 23:18 Tobias Cells Not Reportable 01/02/18 23:18 Bite Cells Not Reportable 01/02/18 23:18 Crenated Cell Not Reportable 01/02/18 23:18 Elliptocytes Not Reportable 01/02/18 23:18 Acanthocytes (Spur) Not Reportable 01/02/18 23:18 Rouleaux Not Reportable 01/02/18 23:18 Hemoglobin C Crystals Not Reportable 01/02/18 23:18 Schistocytes Not Reportable 01/02/18 23:18 Malaria parasites Not Reportable 01/02/18 23:18 Bert Bodies Not Reportable 01/02/18 23:18 Hem Pathologist Commnt No 01/02/18 23:18 Sodium 142 mmol/L (137-145) 01/08/18 06:09 Potassium 3.4 mmol/L (3.6-5.0) L 01/08/18 06:09 Chloride 104.2 mmol/L (98-107) 01/08/18 06:09 Carbon Dioxide 28 mmol/L (22-30) 01/08/18 06:09 Anion Gap 13 mmol/L 01/08/18 06:09 BUN 6 mg/dL (9-20) L 01/08/18 06:09 Creatinine 0.7 mg/dL (0.8-1.5) L 01/08/18 06:09 Estimated GFR > 60 ml/min 01/08/18 06:09 BUN/Creatinine Ratio 9 % 01/08/18 06:09 Glucose 84 mg/dL (75-100) 01/08/18 06:09 POC Glucose 82 (70-105) 01/05/18 22:50 Lactic Acid 1.40 mmol/L (0.7-2.0) 01/03/18 19:53 Calcium 8.5 mg/dL (8.4-10.2) 01/08/18 06:09 Total Bilirubin 0.30 mg/dL (0.1-1.2) 01/04/18 07:26 Direct Bilirubin < 0.2 mg/dL (0-0.2) 01/04/18 07:26 Indirect Bilirubin 0.1 mg/dL 01/04/18 07:26 AST 53 units/L (5-40) H 01/04/18 07:26 ALT 19 units/L (7-56) 01/04/18 07:26 Alkaline Phosphatase 45 units/L (35-129) 01/04/18 07:26 Ammonia 39.0 umol/L (25-60) 01/03/18 12:56 Total Creatine Kinase 166 units/L (55-170) 01/08/18 06:09 CK-MB (CK-2) 9.8 ng/mL (0.0-4.0) H 01/03/18 12:56 CK-MB (CK-2) Rel Index 100.0 (0-4) H 01/03/18 12:56 Troponin T 0.011 ng/mL (0.00-0.029) 01/03/18 12:56 Total Protein 6.5 g/dL (6.3-8.2) 01/04/18 07:26 Albumin 3.0 g/dL (3.9-5) L 01/04/18 07:26 Albumin/Globulin Ratio 0.9 % 01/04/18 07:26 Triglycerides 100 mg/dL (2-149) 01/04/18 07:26 Cholesterol 126 mg/dL (50-199) 01/04/18 07:26 LDL Cholesterol Direct 82 mg/dL (50-130) 01/04/18 07:26 HDL Cholesterol 30 mg/dL (40-59) L 01/04/18 07:26 Cholesterol/HDL Ratio 4.20 % 01/04/18 07:26 Vitamin B12 508.3 pg/mL (211-911) 01/03/18 12:56 TSH 0.284 mlU/mL (0.270-4.200) 01/03/18 12:56 Urine Color Yellow (Yellow) 01/03/18 03:45 Urine Turbidity Clear (Clear) 01/03/18 03:45 Urine pH 5.0 (5.0-7.0) 01/03/18 03:45 Ur Specific [place] 1.016 (1.003-1.030) 01/03/18 03:45 Urine Protein 30 mg/dl mg/dL (Negative) 01/03/18 03:45 Urine Glucose (UA) Neg mg/dL (Negative) 01/03/18 03:45 Urine Ketones Tr mg/dL (Negative) 01/03/18 03:45 Urine Blood Mod (Negative) 01/03/18 03:45 Urine Nitrite Neg (Negative) 01/03/18 03:45 Urine Bilirubin Neg (Negative) 01/03/18 03:45 Urine Urobilinogen < 2.0 mg/dL (<2.0) 01/03/18 03:45 Ur Leukocyte Esterase Neg (Negative) 01/03/18 03:45 Urine WBC (Auto) 1.0 /HPF (0.0-6.0) 01/03/18 03:45 Urine RBC (Auto) 1.0 /HPF (0.0-6.0) 01/03/18 03:45 Urine Mucus Few /HPF 01/03/18 03:45 Urine Opiates Screen Presumptive negative 01/03/18 03:45 Urine Methadone Screen Presumptive negative 01/03/18 03:45 Ur Barbiturates Screen Presumptive negative 01/03/18 03:45 Ur Phencyclidine Scrn Presumptive negative 01/03/18 03:45 Ur Amphetamines Screen Presumptive negative 01/03/18 03:45 U Benzodiazepines Scrn Presumptive negative 01/03/18 03:45 Urine Cocaine Screen Presumptive negative 01/03/18 03:45 U Marijuana (THC) Screen Presumptive negative 01/03/18 03:45 Drugs of Abuse Note Disclamer 01/03/18 03:45 Plasma/Serum Alcohol < 0.01 % (0-0.07) 01/02/18 23:18
[2018-01-09] MEDS: LOVENOX SUB-Q SCH (10:41)
[2018-01-09] MEDS: ASPIRIN PO SCH (10:41)
[2018-01-10 09:38] VITALS: BP 125/74
--- NOTE | 2018-01-10 10:29 | Discharge Summary ---
Providers - Providers Date of Admission: 01/03/18 02:55 Date of discharge: 01/10/18 Attending physician: JILLIAN KENNY 01/03/18 Consult to Physician [CONS] Routine Comment: Consulting Provider: BHARAT DONOVAN Physician Instructions: Reason For Exam: leg weakness 01/03/18 02:56 Occupational Therapy Evaluate and Treat [CONS] Routine Comment: Reason For Exam: Neuro deficits Physical Therapy Evaluation and Treat [CONS] Routine Comment: Reason For Exam: Neuro deficits 01/05/18 08:03 Consult to Wound/ET Nurse [CONS] Routine Reason For Exam: wound eval Primary care physician: IBIS HOANG Hospitalization Condition: Fair Pertinent studies: CXR Ct head MRI brain 2d echo carotid doppler lumber spine CT LLE CT Pelvic xry Hospital course: 82-year-old right handed man with a history of BPH and arthritis presented to the emergency room with complaints of altered mental status per family. They have been calling the patient without a response, after several attempts, the daughter went to check on him. She found him in bed with decrease responsiveness, the house was very hot. When he was in the ER, mental status back at baseline. he was admitted fir further evaluation and management. 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 Residual generalized weakness, physical therapy occupational therapy rehabilitation Neuro workup ; CT head without contrast; no acute abnormality Echo; EF 55% MRI brain; single 3 mL focus of diffusion restriction involving right occipital cortex moderate small vessel disease Carotid Doppler; less then 50% stenosis --Rhabdomyolysis; secondary to fall, CK level improved Preserved renal function, provided Gentle hydration, statin was not ordered for elevated CPK --Lower extremity weakness; CT lumbar spine; no fracture or acute findings noted Mild and the role listhesis at L4 5 ,L3 4 L4 5 fusion hardware intact Continue supportive care along with PT/OT following discharge --Left hip pain; CT left hip no displaced left hip fracture noted, diffuse demyelination Continue supportive care, X-ray hip and pelvis; no acute abnormalities --History of BPH; continue current home medications --DVT prophylaxis; Lovenox --physical debility; PT/OT, rehabilitation --Patient is medically stable for discharge discharged to SNF/rehabilitation placement Disposition: DC/TX-03 SNF W [facility] Time spent for discharge: 34 minutes Core Measure Documentation - Palliative Care Palliative Care/ Comfort Measures: Not Applicable - Core Measures Any of the following diagnoses?: stroke - Stroke Discharge Requirements Statin for LDL = or >70 mg/dl on DC: Yes Anticoag for atrial fib/atrial flutter: Not Applicable Antithrombotic for ischemic stroke: Yes Exam - Physical Exam Narrative exam: General appearance: Present: no acute distress, well-nourished - EENT Eyes: Present: PERRL, EOM intact - Neck Neck: Present: supple, normal ROM - Respiratory Respiratory effort: normal Respiratory: bilateral: diminished, negative: rales, rhonchi, wheezing - Cardiovascular Rhythm: regular Heart Sounds: Present: S1 & S2 - Extremities Extremities: no ischemia, No edema - Abdominal General gastrointestinal: soft, non-tender, non-distended, normal bowel sounds - Integumentary Integumentary: Present: clear, warm - Psychiatric Psychiatric: appropriate mood/affect, cooperative - Neurologic Neurologic: CNII-XII intact, moves all extremities - Constitutional Vitals: Temp Pulse Resp BP Pulse Ox 97.8 F 77 16 125/74 98 01/10/18 08:13 01/10/18 08:13 01/10/18 08:13 01/10/18 08:13 01/10/18 08:13 Plan Activity: up only with assistance Diet: low fat, low salt Additional Instructions: Repeat CPK level in one week Follow up with: IBIS HOANG MD [Primary Care Provider] - 3-5 Days Prescriptions: Pravastatin [Pravachol] 40 mg PO QHS #30 tablet Aspirin EC [Aspirin Enteric Coated TAB] 81 mg PO QDAY #30 tablet.
[2018-01-10] MEDS: LOVENOX SUB-Q SCH (11:11)
[2018-01-10] MEDS: ASPIRIN PO SCH (11:12)
[2018-01-10] MEDS ORDERED: K-DUR PO ONE ×2 (11:44→12:00)
== END 2018-01-10 12:35 | DRG 871 ==
LOC: ED 22:48 → 4A 01-03 02:55 → 2B-ACE 01-05 23:57
PROVIDERS: ADMIT Internal Medicine; ATTEND Internal Medicine
DX: A41.9 Sepsis, unspecified organism (principal); G93.41 Metabolic encephalopathy; I63.9 Cerebral infarction, unspecified; E43 Unspecified severe protein-calorie malnutrition; M62.82 Rhabdomyolysis; N39.0 Urinary tract infection, site not specified; R21 Rash and other nonspecific skin eruption; M25.552 Pain in left hip; M16.0 Bilateral primary osteoarthritis of hip; R29.898 Other symptoms and signs involving the musculoskeletal system; R29.700 NIHSS score 0; N40.0 Benign prostatic hyperplasia without lower urinary tract symptoms; Z82.49 Family history of ischemic heart disease and other diseases of the circulatory system; Z68.24 Body mass index [BMI] 24.0-24.9, adult
CPT/HCPCS: 36415; 70450; 70551; 71045; 72131; 73521; 80048; 80053; 80061; 80074; 80307; 80320; 81001; 82140; 82550; 82553; 82607; 82962; 84443; 84484; 85007; 85025; 87086; 93005; 93010; 93306; 93880; 95819; 99285; G0480; G8987-GO; G8988-GO; J1650; J1956; J7030; J7040

== ENCOUNTER 2020-03-06 20:04 | Emergency (ER) | payer MEDICARE ==
[2020-03-06] MEDS ORDERED: traMADol 50 MG TAB PO ONE (20:48)
[2020-03-06] MEDS ORDERED: ACETAMINOPHEN 500 MG TAB PO ONE (20:48)
--- NOTE | 2020-03-06 20:51 | Emergency Department Report ---
ED Back Pain/Injury HPI - General Stated Complaint: LOWER RT SIDE BACK PAIN Time Seen by Provider: 03/06/20 20:46 Source: patient, old records reviewed Mode of arrival: Stretcher Limitations: No Limitations - History of Present Illness Initial Comments: Mr. Dahl is an 84-year-old male with history of BPH, osteoarthritis, CVA, dementia, kidney stone who presents with right flank pain radiating to the right hip for several days. No history of falls. No history of trauma. No history of weight loss. Has had mild back pain in the past. Has had mild hip pain in the past. Pain is worse than on previous occasions. Daughter Sanford phone #[phone] gave additional history. Patient came to the EMS because she inadvertently pressed patient's life alert button. Once EMS arrived, he desired transportation to the emergency department. He was recently seen in the emergency department and treated for vomiting dehydration and UTI last month. Recently patient has had lethargy and vomiting. For several weeks patient has had poor p.o. intake. He has had decreased appetite. He formally lived in assisted living facility called [facility]. However due to his insistence, he is now living in his house. His daughter and other family members have arranged rotating care. He has a caregiver hired by the family who assist. MRI of the brain has been ordered by his personal neurologist. He is followed by neurologist considering his history of CVA and dementia. He receives his medical care through [facility].. Complaint: back pain -: Gradual, days(s) (Several days) Similar Symptoms Previously: Yes Place: home Severity: moderate Quality: dull, aching Consistency: constant Worsens With: movement Associated Symptoms: denies other symptoms - Related Data Home Medications Medication Instructions Recorded Confirmed Last Taken Atorvastatin [Lipitor Tab] 20 mg PO DAILY 01/16/20 01/16/20 1 Day Ago ~01/15/20 donepeziL [Aricept] 10 mg PO DAILY 01/16/20 01/16/20 1 Day Ago ~01/15/20 Previous Rx's Medication Instructions Recorded Last Taken Type Aspirin EC [Halfprin EC] 81 mg PO QDAY #30 tablet. 01/10/18 1 Day Ago Rx ~01/15/20 Nitrofurantoin Schleicher/M-Cryst 100 mg PO Q12HR #14 capsule 01/16/20 Unknown Rx [Macrobid CAP] Ondansetron [Zofran Odt] 4 mg PO Q8HR PRN #15 tab.rapdis 01/16/20 Unknown Rx Allergies Allergy/AdvReac Type Severity Reaction Status Date / Time Penicillins Allergy Hives Verified 01/16/20 13:55 ED Review of Systems ROS: Stated complaint: LOWER RT SIDE BACK PAIN Other details as noted in HPI Comment: All other systems reviewed and negative Constitutional: denies: fever, malaise Respiratory: denies: cough, shortness of breath Gastrointestinal: denies: abdominal pain, nausea, vomiting Genitourinary: denies: urgency, dysuria ED Past Medical Hx - Past Medical History Previous Medical History?: Yes Hx Hypertension: Yes Hx CVA: Yes Hx Heart Attack/AMI: Yes Hx Dementia: Yes Additional medical history: high cholesterol - Surgical History Past Surgical History?: Yes Hx Coronary Stent: Yes Additional Surgical History: left eye - Social History Smoking Status: Never Smoker Substance Use Type: None - Medications Home Medications: Home Medications Medication Instructions Recorded Confirmed Last Taken Type Aspirin EC [Halfprin EC] 81 mg PO QDAY #30 tablet. 01/10/18 01/16/20 1 Day Ago Rx ~01/15/20 Atorvastatin [Lipitor Tab] 20 mg PO DAILY 01/16/20 01/16/20 1 Day Ago History ~01/15/20 Nitrofurantoin Schleicher/M-Cryst 100 mg PO Q12HR #14 capsule 01/16/20 Unknown Rx [Macrobid CAP] Ondansetron [Zofran Odt] 4 mg PO Q8HR PRN #15 tab.rapdis 01/16/20 Unknown Rx donepeziL [Aricept] 10 mg PO DAILY 01/16/20 01/16/20 1 Day Ago History ~01/15/20 ED Physical Exam - General Limitations: No Limitations General appearance: alert, in no apparent distress - Head Head exam: Present: atraumatic, normocephalic - Eye Eye exam: Present: normal appearance - ENT ENT exam: Present: mucous membranes moist - Neck Neck exam: Present: normal inspection, full ROM - Respiratory Respiratory exam: Present: normal lung sounds bilaterally. Absent: respiratory distress, wheezes, rhonchi, stridor - Cardiovascular Cardiovascular Exam: Present: regular rate, normal rhythm, normal heart sounds. Absent: systolic murmur, diastolic murmur, rubs, gallop - GI/Abdominal GI/Abdominal exam: Present: soft, normal bowel sounds. Absent: distended, tenderness, guarding, rebound - Rectal Rectal exam: Present: deferred - Extremities Exam Extremities exam: Present: normal inspection, full ROM, tenderness - Expanded Lower Extremity Exam Right Hip exam: Present: normal inspection, full ROM. Absent: tenderness, swelling, abrasion Upper Leg exam: Present: normal inspection, full ROM Knee exam: Present: normal inspection, full ROM Lower Leg exam: Present: normal inspection, full ROM - Back Exam Back exam: Present: normal inspection, full ROM. Absent: tenderness, CVA tenderness (R), CVA tenderness (L), muscle spasm, paraspinal tenderness, vertebral tenderness - Neurological Exam Neurological exam: Present: alert, oriented X3 - Psychiatric Psychiatric exam: Present: normal affect, normal mood - Skin Skin exam: Present: warm, dry, intact, normal color. Absent: rash ED Course Vital Signs 03/06/20 03/06/20 03/06/20 20:56 20:58 21:28 Temperature 98.8 F Pulse Rate 58 L Respiratory 16 Rate Blood Pressure 158/76 Blood Pressure 158/76 [Right] O2 Sat by Pulse 98 96 92 Oximetry 03/06/20 03/06/20 21:30 21:44 Temperature Pulse Rate 55 L Respiratory 16 Rate Blood Pressure 158/76 Blood Pressure [Right] O2 Sat by Pulse 97 99 Oximetry ED Medical Decision Making - Lab Data Result diagrams: 03/06/20 22:19 03/06/20 23:24 - Radiology Data Radiology results: report reviewed CT AP without contrast: no acute intraabdominal or intrapelvic pathology, diffuse bladder wall thickeninng X-ray of the hip: No acute skeletal abnormality. Mild osteoarthritis osteo arthrosis, osteopenia. X-ray lumbar spine: No acute fracture, no significant malalignment, postoper ative change posterior fusion with hardware in place, diffuse spondylosis, disc space narrowing L1-L2 - Medical Decision Making 1. Right flank pain radiating to the right hip: No indication of obstructive uropathy, ureteral stone on the right side. No indication of obstructive stone on the left. I suspect musculoskeletal pain. Daughter states that he is prone to falls. He does have significant lumbar disc disease. He also has significant right hip osteoarthrosis 2. Lethargy, no indication of acute infection. I reviewed urinalysis obtained and April: It appeared to be a contaminated sample. Secondly urine culture was negative for bacterial growth. 3. Dehydration due to decreased p.o. intake which appears to be indicative of advancing dementia. Patient has MRI of the brain scheduled for March 14. I spoke with Florinda physician to assist with care coordination at the request of patient's daughter. I spoke with Dr. Yoel Neely physician. She stated that MRI of the spine was ordered in January. However it was canceled due to location. Multiple outpatient appointments have been canceled. I relayed this information to the daughter. Critical care attestation.: If time is entered above; I have spent that time in minutes in the direct care of this critically ill patient, excluding procedure time. ED Disposition Clinical Impression: Back pain, Dehydration, Lumbar degenerative disc disease, Degenerative joint disease of right hip Disposition: DC-01 TO HOME OR SELFCARE Is pt being admited?: No Does the pt Need Aspirin: No Condition: Stable Referrals: FLORINDA NEELY [Other] - 3-5 Days
--- NOTE | 2020-03-06 21:46 | XRay Report ---
RIGHT HIP AND PELVIS 2 VIEWS INDICATION: right hip pain. COMPARISON: No relevant prior imaging study available. FINDINGS: No acute skeletal abnormality. Osteopenia is noted. There is mild osteoarthrosis. There is heterotopi c ossification adjacent to the right pubic bone consistent with chronic adductor IMPRESSION: 1. No acute findings. Signer Name: Leonardo Jones MD Signed: 03/06/2020 9:42 PM Workstation Name: [id number]
--- NOTE | 2020-03-06 21:54 | XRay Report ---
LUMBOSACRAL SPINE 3 VIEWS INDICATION / CLINICAL INFORMATION: MAIN. COMPARISON: CT abdomen pelvis 03/06/2020 FINDINGS: VERTEBRAE: No acute fracture. No significant malalignment. Postoperative change of posterior fusion f rom L3-L5 with satisfactory appearance of the fusion hardware. DISC SPACES / FACET JOINTS:Diffuse lower lumbar spondylosis. Intervertebral disc space narrowing is m ost prominent at L1-L2 PARASPINAL SOFT TISSUES:No significant abnormality. ADDITIONAL FINDINGS: None. Signer Name: Alejandro Siegel MD Signed: 03/06/2020 9:49 PM Workstation Name: [id number]
[2020-03-06] MEDS ORDERED: SODIUM CHLORIDE 0.9% 1000 ML 1,000 ML IV ONE (22:01)
--- NOTE | 2020-03-06 22:03 | Cat Scan Report ---
CT ABDOMEN AND PELVIS WITHOUT CONTRAST INDICATION / CLINICAL INFORMATION: right flank pain. TECHNIQUE: Axial CT images were obtained through the abdomen and pelvis without IV contrast. All CT scans at [facility] location are performed using CT dose reduction for ALARA by means of automated exposure control. COMPARISON: CT lumbar spine 01/03/2018 FINDINGS: LOWER CHEST: Mild cardiomegaly with aortic valve calcification and extensive coronary artery atherosc lerotic calcification with possible stent placement. HEPATOBILIARY: Subcentimeter hypodensity in the left hepatic lobe possibly representing a simple cyst . PANCREAS: No significant abnormality. SPLEEN: No significant abnormality. ADRENALS: No significant abnormality. GENITOURINARY: 8 mm nonobstructing nephrolith in the inferior left kidney. 2.2 cm right renal cyst no evidence of obstructive uropathy. Diffuse bladder wall thickening possibly secondary to nondistentio n or chronic outlet obstruction. GASTROINTESTINAL/MESENTERY: No bowel obstruction or inflammation. Significant stool in the colon sugg esting constipation. No right lower quadrant inflammatory change. No free air or significant free flu id. RETROPERITONEUM: No significant adenopathy. REPRODUCTIVE ORGANS: Prostatomegaly uplifting the base of the bladder. VASCULAR: Severe atherosclerotic calcification without acute abnormality. SKELETAL SYSTEM: Postoperative change of L3-S5 posterior fusion and bulky ankylosis of the right sacr oiliac joint. Heterotopic ossification is seen in the right groin musculature. Extensive degenerative change. No acute fracture. ADDITIONAL FINDINGS: No significant abnormality. IMPRESSION: 1. No acute intra-abdominal or intrapelvic pathology. 2. 8 mm nonobstructing left nephrolith and small right renal cyst. 3. Diffuse thickening of the bladder wall likely secondary to chronic outlet obstruction from prostat omegaly. 4. Mild cardiomegaly with aortic valve calcification and extensive coronary artery atherosclerotic ca lcification. Signer Name: Alejandro Siegel MD Signed: 03/06/2020 9:59 PM Workstation Name: [id number]
[2020-03-06 22:45] LABS: Basophils # (Auto) 0.1 K/mm3 (0.0-0.1); Basophils % (Auto) 0.9 % (0.0-1.8); Eosinophils % (Auto) 0.3 % (0.0-4.3); Hematocrit 36.4 % (35.5-45.6); Hemoglobin 12.8 gm/dl (11.8-15.2); Lymphocytes # (Auto) 1.5 K/mm3 (1.2-5.4); Lymphocytes % (Auto) 15.3 % (13.4-35.0); Mean Corpuscular HGB Conc 35 % (32-34); Mean Corpuscular Volume 81 fl (84-94); Monocytes # (Auto) 0.3 K/mm3 (0.0-0.8); Monocytes % (Auto) 3.1 % (0.0-7.3); Platelet Count 544 K/mm3 (140-440); Red Blood Count 4.52 M/mm3 (3.65-5.03); Red Cell Distribution Width 14.4 % (13.2-15.2)
[2020-03-06 23:22] LABS: BUN/Creatinine Ratio TNR; Blood Urea Nitrogen TNR mg/dL (9-20)
[2020-03-06 23:23] LABS: Calcium TNR mg/dL (8.4-10.2); Hemolysis Index TNR
[2020-03-07 00:07] LABS: BUN/Creatinine Ratio 18; Blood Urea Nitrogen 14 mg/dL (9-20); Calcium 9.6 mg/dL (8.4-10.2); Hemolysis Index 4
[2020-03-07 00:36] LABS: Bilirubin,Urine NEG (Negative); Blood,Urine NEG (Negative); Color,Urine Yellow (Yellow); Mucus,Urine FEW /HPF; Protein,Urine <15 mg/dL mg/dL (Negative); Urobilinogen,Urine < 2.0 mg/dL (<2.0)
[2020-03-07 01:48] VITALS: BP 153/78
== END 2020-03-07 01:47 | disposition home or self-care (01) ==
LOC: ED 20:04
DX: M51.36 Other intervertebral disc degeneration, lumbar region (principal); M16.11 Unilateral primary osteoarthritis, right hip; E86.0 Dehydration; I25.2 Old myocardial infarction; I10 Essential (primary) hypertension; F03.90 Unspecified dementia, unspecified severity, without behavioral disturbance, psychotic disturbance, mood disturbance, and anxiety; Z86.73 Personal history of transient ischemic attack (TIA), and cerebral infarction without residual deficits; Z98.890 Other specified postprocedural states; Z79.899 Other long term (current) drug therapy; Z88.0 Allergy status to penicillin
CPT/HCPCS: 36415; 72100; 73502; 74176; 80048; 81001; 85025; 87086; 96360; 99285; J7030